=== PATIENT | female | born 1970 | race Caucasian/White ===

== ENCOUNTER 2017-11-04 02:07 | Outpatient (CLI) | payer BC, SELFPAY ==
--- NOTE | 2017-11-04 07:55 | DI.MAMMO_ITS ---
SYMPTOM/DIAGNOSIS: SCREENING, Z12.31 MAMMOGRAMS: Mammograms were interpreted according to the usual protocol including computer analysis with CAD system, tomosynthesis and C view imaging. Comparison is made with exams from 5450-5718. The breasts are composed of fatty density tissue, breast density, Category A. No suspicious masses or suspicious microcalcifications are seen. There has been no significant change. IMPRESSION: Category 1A, negative mammogram. Routine screening is recommended. SA ASSESSMENT OF FINDINGS: Negative. Category 1. Patient will receive a letter notifying them of these results. BI-RAD category A. The breasts are almost entirely fatty.
== END 2017-11-04 02:27 ==
PROVIDERS: Visit Provider Obstetrics & Gynecology Gynecology
DX: Z12.31 Encounter for screening mammogram for malignant neoplasm of breast (principal)
CPT/HCPCS: 77063; 77067

== ENCOUNTER 2018-01-03 09:31 | Outpatient (REF) | payer BC, SELFPAY ==
--- NOTE | 2018-01-03 09:00 | PAPFT_PTH ---
PATIENT: Charlette Thurman LOC: [facility] U#:[id number] AGE/SX: 47/F ROOM: RE01/03/[address]: Lashell Amador : 1970 BED: DIS: 01/03/2018 SPEC #: [id number] RECD: 01/03/18 17:41 STATUS: GEOVANNA REMary #: [id number] PAOLA: 01/03/18 09:[address]: Lashell Amador DEPT: [facility] Cytology RECD BY: Pati Pak ENTERED: 01/03/18 17:41 SP TYPE: PAPFT OTHR DR: Megan Vaca Tissues: 1 - CX/ENDOCX FOR PAP SMEARS Procedures: PAP THIN PREP/UVM Screening HPV DNA PROBE Comments: [id number]
== END 2018-01-03 09:51 ==
LOC: LBN 09:31
PROVIDERS: Visit Provider Obstetrics & Gynecology Gynecology
DX: Z12.4 Encounter for screening for malignant neoplasm of cervix (principal); Z11.51 Encounter for screening for human papillomavirus (HPV)
CPT/HCPCS: 88142; 87624

== ENCOUNTER 2018-06-01 13:27 | Outpatient (CLI) | payer BC, SELFPAY ==
--- NOTE | 2018-06-01 13:00 | DI.RAD_ITS ---
SYMPTOMS/DIAGNOSIS: COUGH, R05 PA AND LATERAL CHEST: Allowing for a suboptimal inspiratory effort, the lungs are clear. There is no evidence of a pleural effusion. Elevation of the right hemidiaphragm is apparent. The heart is not enlarged. The hilar structures, mediastinum and tracheal air column appear intact. SUMMARY: No acute abnormality is demonstrated.
== END 2018-06-01 13:47 ==
PROVIDERS: PCP Nurse Practitioner; Visit Provider Nurse Practitioner
DX: R05 Cough (principal)
CPT/HCPCS: 71046

== ENCOUNTER 2018-10-19 07:55 | Outpatient (CLI) | payer BC, SELFPAY ==
[2018-10-19 08:53] LABS: Hemoglobin A1C 6.1 % (4.5-6.2)
[2018-10-19 09:51] LABS: ALT 30 U/L (12-78); AST 26 U/L (15-37); Albumin 3.4 g/dL (3.4-5.0); Alkaline Phosphatase 76 U/L (46-116); Anion Gap 8.4 mmol/L (3-11); BUN 13 mg/dL (7-18); Bilirubin, Total 0.2 mg/dL (0.2-1.0); CO2 30.6 mmol/L (21.0-32.0); CREATININE 0.82 mg/dL (0.55-1.02); Calculated LDL 135 mg/dL; Chloride 103 mmol/L (98-107); Cholesterol 188 mg/dL (50-200); Glucose 103 mg/dL (70-100); HDL Cholesterol 34 mg/dL (40-60); Potassium 4.1 mmol/L (3.5-5.1); Sodium 142 mmol/L (136-145); Total Protein 7.2 g/dL (6.4-8.2); Triglyceride 95 mg/dL (30-150)
== END 2018-10-19 08:15 ==
PROVIDERS: PCP Nurse Practitioner; Visit Provider Nurse Practitioner Family
DX: R73.03 Prediabetes (principal); E66.9 Obesity, unspecified
CPT/HCPCS: 36415; 80053; 80061; 83721; 83036

== ENCOUNTER 2019-01-02 01:26 | Outpatient (CLI) | payer BC, SELFPAY ==
--- NOTE | 2019-01-02 07:30 | DI.MAMMO_ITS ---
EXAM: MG MAMMO SCREENING CLINICAL HISTORY: Screening, z12.39 TECHNIQUE: Mammograms were interpreted according to the usual protocol including computer analysis w [employer] CAD system, tomosynthesis and C-view imaging. COMPARISON: [id number] FINDINGS: The breasts are composed of almost entirely fatty tissue, breast density category A. There are no louise spicious masses or suspicious microcalcifications. There is no significant interval change when paulino red with the previous images. IMPRESSION: Category 1, negative mammogram. Yearly screening mammography is recommended. BI-RADS Cat 1 - Negative Breast Density - Category A - Almost entirely fatty
== END 2019-01-02 01:46 ==
PROVIDERS: PCP Nurse Practitioner; Visit Provider Obstetrics & Gynecology Gynecology
DX: Z12.31 Encounter for screening mammogram for malignant neoplasm of breast (principal)
CPT/HCPCS: 77063; 77067

== ENCOUNTER 2019-02-13 13:58 | Outpatient (CLI) | payer BC, SELFPAY ==
--- NOTE | 2019-02-13 14:29 | DI.RAD_ITS ---
EXAM: XR FOOT LT COMPLETE INDICATION: PAIN LT FOOT, M79.672. COMPARISON: No exams were available for comparison TECHNIQUE: 2D digital imaging was performed. FINDINGS: Three weight-bearing views were performed. The plantar arch is well maintained. There are minimal h eel spurs. There is mild spurring at the posterior talocalcaneal joint. MTP joints are unremarkable . There is no hallux valgus. IMPRESSION: Minimal degenerative changes.
== END 2019-02-13 14:18 ==
PROVIDERS: PCP Nurse Practitioner; Visit Provider Podiatrist Foot & Ankle Surgery
DX: M79.672 Pain in left foot (principal); M77.32 Calcaneal spur, left foot; M25.772 Osteophyte, left ankle
CPT/HCPCS: 73630

== ENCOUNTER 2019-04-06 11:19 | Outpatient (REF) | payer BC, SELFPAY ==
[2019-04-06 21:32] LABS: Abs Immature Grans 0.01 k/cumm (0.0-0.09); Absolute Basophil Count 0.04 k/cumm (0.0-0.2); Absolute Lymphocyte Count 2.81 k/cumm (1.2-3.4); Absolute Monocyte Count 0.94 k/cumm (0.11-0.7); Absolute Neutrophil Count 4.81 k/cumm (1.2-6.7); Basophils % 0.4; Eosinophils % 3.4; HCT 39.6 % (36.0-46.0); HGB 12.6 g/dL (12.0-15.5); Immature Grans % 0.1 %; Lymphocytes % 31.5; Mean Corp. HGB Concentration 31.8 g/dL (32.0-36.0); Mean Corpuscular Volume 91.2 fL (80-95); Mean Platelet Volume 10.1 fL (8.0-11.0); Monocytes % 10.5; Neutrophils % 54.1; Platelet Count 387 x1000/uL (130-400); RBC 4.34 m/cumm (4.00-5.20); RBC Distribution Width 14.8 % (11.7-14.6); White Blood Cell Count 8.91 k/cumm (4.4-10.8)
[2019-04-06 21:46] LABS: ALT 32 U/L (14-59); AST 27 U/L (15-37); Albumin 3.5 g/dL (3.4-5.0); Alkaline Phosphatase 69 U/L (46-116); Anion Gap 7.2 mmol/L (3-11); BUN 15 mg/dL (7-18); Bilirubin, Total 0.2 mg/dL (0.2-1.0); CO2 31.8 mmol/L (21.0-32.0); CREATININE 0.76 mg/dL (0.55-1.02); Calcium 9.4 mg/dL (8.5-10.1); Chloride 101 mmol/L (98-107); Glucose 76 mg/dL (74-106); Potassium 4.1 mmol/L (3.5-5.1); Sodium 140 mmol/L (136-145); Total Protein 7.2 g/dL (6.4-8.2)
== END 2019-04-06 11:39 ==
LOC: NCHCN 11:19
PROVIDERS: PCP Nurse Practitioner; Visit Provider Nurse Practitioner Family
DX: R10.9 Unspecified abdominal pain (principal)
CPT/HCPCS: 80053; 85025; 87086

== ENCOUNTER 2020-02-29 01:32 | Outpatient (CLI) | payer BC, SELFPAY ==
--- NOTE | 2020-02-29 07:30 | DI.MAMMO_ITS ---
EXAM: MG MAMMO SCREENING CLINICAL HISTORY: screening. TECHNIQUE: Bilateral full field digital CC and MLO mammographic images were obtained with 3D tomosyn thesis and utilizing computer aided detection (CAD). COMPARISON: Prior mammograms dating back to 2010, the most recent being December 2018. FINDINGS: There are no spiculated masses nor malignant appearing microcalcification groups. There is no signif icant architectural distortion nor skin thickening-retraction. IMPRESSION: No radiographic evidence of malignancy. BI-RADS Category 1 - Negative Breast Density - Category A - Almost entirely fatty Breast density Category C or D implies that the patient has dense breast tissue. Dense breast tissue can make it harder to find cancer on a mammogram. Dense breast tissue is also associated with an incr eased risk of breast cancer. This information about the result of the mammogram report was provided to the patient to raise their awareness. Use this report when you speak with the patient about their risks for breast cancer, which includes their family history. At that time, you may recommend additional screening tests (Ultrasoun d or MRI) as these tests may add significant information. A negative radiographic report should not delay biopsy if a dominant or clinically suspicious mass is present. Up to ten percent of cancers are not identified on mammography. A negative report may reinforce clinical impression. Adenosis and dense breasts may obscure an underlying neoplasm. False positive reports average 6 to 10%. Patient will receive a letter notifying them of these results.
== END 2020-02-29 01:52 ==
PROVIDERS: PCP Nurse Practitioner; Visit Provider Nurse Practitioner Family
DX: Z12.31 Encounter for screening mammogram for malignant neoplasm of breast (principal)
CPT/HCPCS: 77063; 77067

== ENCOUNTER 2020-03-06 04:04 | Outpatient (CLI) | payer BC, SELFPAY ==
[2020-03-07 02:12] LABS: COVID-19 RT-PCR UVMMC Result Negative (Negative)
== END 2020-03-06 04:24 ==
PROVIDERS: PCP Nurse Practitioner; Visit Provider Nurse Practitioner Family
DX: Z11.59 Encounter for screening for other viral diseases (principal)
CPT/HCPCS: U0003

== ENCOUNTER 2020-04-25 18:09 | Outpatient (REF) | payer BC, SELFPAY ==
[2020-04-25 13:55] LABS: ALT 29 U/L (14-59); AST 19 U/L (15-37); Albumin 3.8 g/dL (3.4-5.0); Alkaline Phosphatase 70 U/L (46-116); Anion Gap 8.2 mmol/L (3-11); BUN 21 mg/dL (7-18); Bilirubin, Total 0.3 mg/dL (0.2-1.0); CO2 31.8 mmol/L (21.0-32.0); CREATININE 0.9 mg/dL (0.55-1.02); Calcium 9.6 mg/dL (8.5-10.1); Calculated LDL 123 mg/dL (<100); Chloride 101 mmol/L (98-107); Cholesterol 190 mg/dL (<200); Glucose 82 mg/dL (74-106); HDL Cholesterol 39 mg/dL (40-60); Potassium 4.1 mmol/L (3.5-5.1); Sodium 141 mmol/L (136-145); Total Protein 7.6 g/dL (6.4-8.2); Triglyceride 144 mg/dL (<150)
== END 2020-04-25 18:10 | disposition home or self-care (01) ==
LOC: NCHCN 18:09
PROVIDERS: PCP Nurse Practitioner; Visit Provider Nurse Practitioner Family
DX: I10 Essential (primary) hypertension (principal); E78.5 Hyperlipidemia, unspecified; R73.03 Prediabetes; E55.9 Vitamin D deficiency, unspecified; F32.9 Major depressive disorder, single episode, unspecified
CPT/HCPCS: 80053; 80061

== ENCOUNTER 2020-05-29 02:03 | Outpatient (CLI) | payer BC, SELFPAY ==
--- NOTE | 2020-05-29 07:23 | DI.US_ITS ---
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 The left ventricular systolic function is normal. The left ventricular ejection fraction is within the normal range. There is normal left ventricular wall thickness. There is normal LV segmental wall motion. The left ventricular diastolic function is normal. LVEF is 60-65%. Right Ventricle : Right ventricle is mildly dilated. Right ventricular systolic function is grossly n ormal. The RVSP is 31.9mmHg. Atria : The left atrium size is normal. The right atrium size is normal. Aortic Valve : The aortic valve is normal in structure. Aortic valve is trileaflet. Trace aortic regu rgitation. There is no aortic valvular stenosis. Mitral Valve : The mitral valve is normal in structure. Mild mitral regurgitation. No evidence of jeancarlos ral valve stenosis. Great Vessels : The aortic root is normal in size. The ascending aorta is mildly dilated. Aortic arch is normal in caliber. IVC is normal in size and collapses >50% with inspiration. Compared to study from 01/01/2017, there is no significant change. Wall motion Left Ventricle The left ventricle is normal size. The left ventricular systolic function is normal. The left ventric ular ejection fraction is within the normal range. There is normal left ventricular wall thickness. T here is normal LV segmental wall motion. The left ventricular diastolic function is normal. There is no ventricular septal defect visualized. LVEF is 60-65%. Right Ventricle Right ventricle is mildly dilated. Right ventricular systolic function is grossly normal. The RVSP is 31.9mmHg. Atria The left atrium size is normal. The right atrium size is normal. The interatrial septum is intact wit h no evidence for an atrial septal defect. Aortic Valve The aortic valve is normal in structure. Aortic valve is trileaflet. There is no aortic valvular sten osis. Trace aortic regurgitation. Mitral Valve The mitral valve is normal in structure. No evidence of mitral valve stenosis. Mild mitral regurgitat ion. Tricuspid Valve The tricuspid valve is normal in structure. There is no tricuspid valve stenosis. Mild tricuspid regu rgitation. Pulmonic Valve The pulmonary valve is normal in structure. There is no pulmonic valvular stenosis. There is no pulmo tylor valvular regurgitation. Great Vessels The aortic root is normal in size. The ascending aorta is mildly dilated. Aortic arch is normal in ca liber. IVC is normal in size and collapses >50% with inspiration. Pericardium There is no pericardial effusion. 2D Dimensions IVSD d PLAX 0.81 cm F: 0.6-1.0 LV Vol A2C d MOD 113.3 mL LVPW d PLAX 0.81 cm F: 0.6 - 1.0 LV Vol A4C d MOD 87.3 mL LVID d PLAX 4.59 cm F: 3.8 - 5.2 LA vol/ BSA A2C s A-L 26.3 mL/m2 LVDs 3.05 cm F: 2.2 - 3.5 LA vol/ BSA A4C s A-L 16.4 mL/m2 Ao Root d 3.07 cm F: 2.7 - 3.3 LA Vol/ BSA Biplane s A-L 23.0 mL/m2 RA Area A4C 15.48 cm2 LA Area A4C s MOD 15.63 cm2 RA Vol/ BSA A4C s A-L 19.2 mL/m2 LA Area A2C s MOD 17.88 cm2 Ao Asc Diam d 3.56 cm F: 2.3 - 3.1 LV EF A4C MOD 63.7 % LV EF Teichholz 61.7 % LV EF A2C MOD 61.6 % LVEF (Zimmerman's) 62.29 % F: 54 - 74 LV EF Biplane MOD 62.3 % LV Volume 72.67 mL F: 46 - 106 SV 62.44 mL LV Volume Index 32.73 mL/m2 F: 29 - 61 SV Index 28.09 mL/m2 LV Vol Biplane MOD 100.2 mL FS 33.05 % M-Mode TAPSE 2.26 cm (M/F) >1.7 LV Diastology MV E' medial 0.095 (>0.07 m/s) E/A Ratio 1.4 LV E/e MED 8.50 (<14) MV E Vmax 0.81 (0.4-1.3 m/s) MV E' lateral 0.121 (>0.1 m/s) MV A Vmax 0.60 (0.4-1.3 m/s) LV E/e LAT 6.75 (<14) MV E/A Ratio 1.35 MV E/E' medial 8.55 MV E/E' lateral 6.76 Aortic Valve LVOT Area 2.96 cm2 AoV Area Vmax 2.24 cm2 LVOT Vmax 0.97 m/s AoV Area/ BSA (Vmax) 1.01 cm2/m2 LVOT Mean Isreal. 0.63 m/s ALBA Mean Isreal. 2.08 cm2 LVOT Peak Grad 3.8 mmHg ALBA Mean Isreal. Index 0.94 cm2/m2 LVOT Mean Grad 1.8 mmHg AR DT 3503 msec LVOT VTI 0.232 m AR PHT 1016 msec LVOT Diam s 1.90 cm AoV Vmax 1.29 m/s Velocity Ratio 0.75 AoV Mean Isreal. 0.89 m/s AoV Peak Grad 6.6 mmHg LVOT SV 68.86 mL AoV Mean Grad 3.6 mmHg AoV VTI 0.300 m AoV Area VTI 2.30 cm2 AoV Area/ BSA (VTI) 1.03 cm/m2 Mitral Valve MV DT 191 (160-240 msec) MR PISA Radius 0.49 cm MV PHT 55 msec MR Aliasing Velocity 0.35 m/s MV Area PHT 3.98 cm2 MR PISA 1.51 cm2 MV VTI 0.338 m MV VTI Annulus 0.340 m MV Area VTI 2.05 (4.0-6.0 cm2) Pulmonary Valve PV Vmax 1.01 (0.5-1.5 m/s) RVOT Peak Gr. 3.43 mmHg PV Peak Grad 4.1 mmHg RVOT Mean Gr. 1.80 mmHg PV Mean Grad 2.2 mmHg RVOT VTI 0.221 m PV VTI 0.240 m RVOT Vmax 0.93 m/s Tricuspid Valve TR Peak Grad 28.9 mmHg TR Vmax 2.69 m/s RA Pressure 3.00 mmHg RVSP (TR) 31.9 mmHg
== END 2020-05-29 02:23 ==
PROVIDERS: PCP Nurse Practitioner Family; Visit Provider Nurse Practitioner Family
DX: I08.0 Rheumatic disorders of both mitral and aortic valves (principal); I77.810 Thoracic aortic ectasia
CPT/HCPCS: 93306

== ENCOUNTER 2020-08-22 02:47 | Outpatient (CLI) | payer BC, SELFPAY ==
--- NOTE | 2020-08-22 09:34 | DI.RAD_ITS ---
Exam(s) XR FOOT RT COMPLETE EXAM: XR FOOT RT COMPLETE CLINICAL HISTORY: RT FOOT PAIN, M79.671. TECHNIQUE: 2D digital imaging was performed. COMPARISON: CR XR FOOT LT COMPLETE from 02/13/2019 FINDINGS: There is no evidence of fracture nor diastasis of the Lisfranc joint. No osseous lesions nor erosion s. Accessory ossicles noted on the medial aspect of the foot adjacent to the navicular tuberosity wh ich is probably a sesamoid within the tibialis posterior tendon. No pes planus. Minimal degenerativ e changes. No erosions. No osseous lesions. IMPRESSION: DATA REPOSITORY: RADIATION DOSE DELIVERED:
== END 2020-08-22 03:07 ==
PROVIDERS: PCP Nurse Practitioner Family; Visit Provider Family Medicine
DX: M79.671 Pain in right foot (principal)
CPT/HCPCS: 73630

== ENCOUNTER 2021-01-02 14:06 | Outpatient (CLI) | payer BC, SELFPAY ==
--- NOTE | 2021-01-02 14:00 | RT.EKG_ITS ---
APPROVED REPORT Exam: Resting ECG Reason for Exam: New Patient baseline Patient Location: O HR:57 bpm ECG Measurements Heart Rate 57 AXIS WY 172 P 34 QRSd 95 QRS 16 QT 404 T 71 QTc 394 Conclusion Sinus rhythm...normal P axis, V-rate 50- 99 Normal Electrocardiogram
== END 2021-01-02 14:07 | disposition home or self-care (01) ==
LOC: DI.CARD 14:11
PROVIDERS: PCP Nurse Practitioner Family; Visit Provider Internal Medicine Cardiovascular Disease
DX: I35.1 Nonrheumatic aortic (valve) insufficiency (principal); I77.810 Thoracic aortic ectasia
CPT/HCPCS: 93010

== ENCOUNTER 2021-02-14 15:06 | Outpatient (REF) | payer BC, SELFPAY ==
[2021-02-15 17:18] LABS: COVID-19 RT-PCR UVMMC Result Negative (Negative)
== END 2021-02-14 15:07 | disposition home or self-care (01) ==
LOC: LBN 15:06
PROVIDERS: PCP Nurse Practitioner Family; Visit Provider Physician Assistant Medical
DX: Z20.822 Contact with and (suspected) exposure to COVID-19 (principal); J06.9 Acute upper respiratory infection, unspecified
CPT/HCPCS: U0003

== ENCOUNTER 2021-05-23 17:15 | Outpatient (REF) | payer BC, SELFPAY ==
[2021-05-23 15:16] LABS: ALT 42 U/L (14-59); AST 30 U/L (15-37); Albumin 3.5 g/dL (3.4-5.0); Alkaline Phosphatase 76 U/L (46-116); Anion Gap 9.4 mmol/L (3-11); BUN 13 mg/dL (7-18); Bilirubin, Total 0.3 mg/dL (0.2-1.0); CO2 29.6 mmol/L (21.0-32.0); CREATININE 0.8 mg/dL (0.55-1.02); Calcium 9.1 mg/dL (8.5-10.1); Calculated LDL 109 mg/dL (<100); Chloride 101 mmol/L (98-107); Cholesterol 185 mg/dL (<200); Glucose 131 mg/dL (74-106); HDL Cholesterol 35 mg/dL (40-60); Potassium 3.6 mmol/L (3.5-5.1); Sodium 140 mmol/L (136-145); Total Protein 7.2 g/dL (6.4-8.2); Triglyceride 209 mg/dL (<150)
== END 2021-05-23 17:16 | disposition home or self-care (01) ==
LOC: NCHCN 17:15
PROVIDERS: PCP Nurse Practitioner Family; Visit Provider Nurse Practitioner Family
DX: I10 Essential (primary) hypertension (principal); E78.5 Hyperlipidemia, unspecified; R73.03 Prediabetes
CPT/HCPCS: 80053; 80061

== ENCOUNTER 2021-07-09 00:16 | Outpatient (CLI) | payer BC, SELFPAY ==
--- NOTE | 2021-07-09 06:30 | DI.MAMMO_ITS ---
Exam(s) MAMMO SCREENING EXAM: MAMMO SCREENING CLINICAL HISTORY: screening,z12.39 TECHNIQUE: Mammograms were interpreted according to the usual protocol including computer analysis w [employer] CAD system, tomosynthesis and C-view imaging. COMPARISON: 2011 through 2019 FINDINGS: The breasts are composed of mainly fatty density , Breast Density category A. No suspicious masses or suspicious microcalcifications are seen. No skin thickening or abnormal axillary lymph nodes are seen. There has been no significant change from prior exams. IMPRESSION: BI-RADS Category 1, Negative mammogram Yearly screening mammography is recommended. Breast Density - Category A, fatty density. A negative radiographic report should not delay biopsy if a dominant or clinically suspicious mass is present. Up to ten percent of cancers are not identified on mammography. A negative report may reinforce clinical impression. Adenosis and dense breasts may obscure an underlying neoplasm. False positive reports average 6 to 10%. Patient will receive a letter notifying them of these results.
== END 2021-07-09 00:36 ==
PROVIDERS: PCP Nurse Practitioner Family; Visit Provider Obstetrics & Gynecology Gynecology
DX: Z12.31 Encounter for screening mammogram for malignant neoplasm of breast (principal)
CPT/HCPCS: 77063; 77067

== ENCOUNTER 2021-08-01 09:15 | Outpatient (REF) | payer BC, SELFPAY ==
--- NOTE | 2021-08-01 09:00 | PAPFT_PTH ---
PATIENT: Charlette Thurman LOC: [facility] U#:[id number] AGE/SX: 51/F ROOM: RE08/01/[address]: Lashell Amador : 1970 BED: DIS: 08/01/2021 SPEC #: [id number] RECD: 08/01/21 12:54 STATUS: GEOVANNA REQ #: [id number] PAOLA: 08/01/21 09:[address]: Lashell Amador DEPT: [facility] Cytology RECD BY: Pati Pak ENTERED: 08/01/21 12:54 SP TYPE: PAPFT OTHR DR: Tena Varner Tissues: 1 - CX/ENDOCX FOR PAP SMEARS Procedures: PAP THIN PREP/UVM Screening HPV DNA PROBE Comments: [id number]
== END 2021-08-01 09:16 | disposition home or self-care (01) ==
LOC: LBN 09:15
PROVIDERS: PCP Nurse Practitioner Family; Visit Provider Obstetrics & Gynecology Gynecology
DX: Z12.4 Encounter for screening for malignant neoplasm of cervix (principal); Z11.51 Encounter for screening for human papillomavirus (HPV)
CPT/HCPCS: 88142; 87624

== ENCOUNTER 2022-01-08 18:31 | Outpatient (REF) | payer BC, SELFPAY ==
[2022-01-08 16:58] LABS: ALT 44 U/L (14-59); AST 44 U/L (15-37); Albumin 3.6 g/dL (3.4-5.0); Alkaline Phosphatase 71 U/L (46-116); Anion Gap 5.1 mmol/L (3-11); BUN 12 mg/dL (7-18); Bilirubin, Total 0.3 mg/dL (0.2-1.0); CO2 32.9 mmol/L (21.0-32.0); CREATININE 0.8 mg/dL (0.55-1.02); Calcium 9.4 mg/dL (8.5-10.1); Calculated LDL 84 mg/dL (<100); Chloride 102 mmol/L (98-107); Cholesterol 150 mg/dL (<200); Estimated GFR 89.15 (mL/min/1.73m2); Glucose 108 mg/dL (74-106); HDL Cholesterol 41 mg/dL (40-60); Potassium 4.5 mmol/L (3.5-5.1); Sodium 140 mmol/L (136-145); Total Protein 7.2 g/dL (6.4-8.2); Triglyceride 128 mg/dL (<150)
== END 2022-01-08 18:32 | disposition home or self-care (01) ==
LOC: NCHCN 18:31
PROVIDERS: PCP Nurse Practitioner Family; Visit Provider Nurse Practitioner Family
DX: I10 Essential (primary) hypertension (principal); E78.5 Hyperlipidemia, unspecified; E66.9 Obesity, unspecified; R73.03 Prediabetes
CPT/HCPCS: 80053; 80061

== ENCOUNTER 2022-07-31 09:03 | Day surgery (SDC) | payer BC, SELFPAY ==
--- NOTE | 2022-07-30 19:31 | W.PM.DSUDISC ---
Date of service: 07/31/22 Time of Service: 11:21 Discharge Plan Disposition Patient Disposition: Home Condition: Good Discharge Details Reason For Visit: Screening colonoscopy Attending Provider: Miguel Ruiz Primary Care Provider: Tena Varner Home Meds and New Rx's Prescriptions: Continued simvastatin 10 mg tablet 10 mg PO QPM multivitamin [Daily Vitamin] 1 EACH tablet 1 ea PO DAILY Antacid Extra-Strength 1 EACH tablet 1 ea PO TID lisinopril 40 MG tablet 40 mg PO DAILY Qty: 1 chlorthalidone 25 MG tablet 25 mg PO DAILY Mirena 1 EACH intrauterine device 1 ea Intrauterine ONCE Qty: 1 0RF cholecalciferol (vitamin D3) 50 mcg (2,000 unit) capsule 50 mcg PO DAILY sertraline 50 mg tablet 50 mg PO DAILY ascorbic acid (vitamin C) 500 mg capsule 500 mg PO DAILY magnesium chloride 64 mg tablet,delayed release (DR/EC) 64 mg PO DAILY omeprazole 20 mg capsule,delayed release(DR/EC) 20 mg PO DAILY PRN Discontinued polyethylene glycol 3350 17 gram/dose powder 17 g PO ONCE Qty: 238 0RF Rx Instructions: Take per colonoscopy instructions provided by ordering providers office bisacodyl [Dulcolax (bisacodyl)] 5 mg tablet,delayed release (DR/EC) 5 mg PO ONCE Qty: 4 0RF Rx Instructions: Take per colonoscopy instructions provided by ordering providers office Discharge Instructions Instructions: Diverticulosis (GEN), Diverticulosis Diet (GEN) Additional Instructions: Charlette, we were able to complete your colonoscopy today without any difficulty. I had very good visualization of the inside lining of the colon. You do have some sigmoid diverticulosis. These are weak spots in the colon wall that most patients accumulate with age. We have attached some information here regarding general management of diverticula. Otherwise, I did not see any signs of tumors or polyps. Based on your family history of colon cancer, I recommend screening colonoscopies every 5 years. 1. If tolerated, consume a soft, low fiber diet for 1-2 days. 2[address] Do not drive, drink alcohol, operate machinery, make critical decisions, or do activities that require coordination or balance for 24 hours. 3. Because air was put into your colon during the procedure, expelling air from your rectum (passing gas or farting) is normal. 4. You may not have a bowel movement for 1-3 days because of the colonoscopy prep. This is normal. 5. Go directly to the emergency room if you notice any of the following: Develop chills (warm to touch), or if you have a thermometer and your temperature is above 101 Difficulty breathing or difficultly swallowing Persistent vomiting Severe abdominal pain, other than gas cramps Severe chest pain Black, tarry stools Any bleeding ? exceeding one tablespoon 6. Call your physician if the site where your intravenous was started becomes red, swollen, painful, and warm to touch. 7. Your physician has reviewed your pre-procedure medications. Please continue to take those medications as previously ordered. You will be given specific information/education regarding any changes to your medications before leaving. Activity:: Activity as Tolerated Diet:: As Tolerated Discharge Orders Discharge Orders: Discharge Order (Routine); Ordered 07/30/22 Ordered By: Miguel Ruiz DS: Diagnosis Discharge Diagnosis (1) Screening for colon cancer: Status: Acute Asessment and Plan: Sigmoid diverticulosis, but otherwise normal colonoscopy. Based on family history of colon cancer, I recommend another screening in 5 years
--- NOTE | 2022-07-30 19:32 | W.COLOREPORT ---
Date of service: 07/31/22 Time of Service: : Colonoscopy Report Date of procedure: 07/31/22 Pre-op diagnosis general: Screening colonoscopy Post-op diagnosis procedure note: other (Diverticulosis) Procedure: Colonoscopy Surgeon: Miguel Ruiz Anesthesia Type: General:No Airway Estimated blood loss (mL): 0 Pathology: none sent Complications: None Disposition: same day Indications: Charlette is a 52-year-old woman with a first-degree relative with colon cancer. She is here for screening colonoscopy Prep: Miralax/Dulcolax Procedure Start Time: 10:51 Procedure End Time: : Retraction Time: 11 Findings: Sigmoid diverticulosis extending from 20 cm to 40 cm Procedure Description: After the induction of monitored anesthetic care, and with the patient in left lateral decubitus position, I began by performing an external anorectal exam.? Perineum and skin were normal, as was the anal verge.? There was no evidence of external hemorrhoids.? Next, I performed a digital rectal exam.? I did not appreciate any abnormal findings.? Next, I advanced a colonoscope into the rectal vault.? I performed retroflexion.? This appeared normal to me.? Using insufflation, I then advanced the colonoscope beyond the rectal folds and into the sigmoid colon before advancing towards the cecum.? There was sigmoid diverticulosis extending from approximately 20 cm to 40 cm. the quality of the prep was adequate.? The scope was noted to be in the cecum by identification of the ileocecal valve and appendiceal orifice.? I then began withdrawing the colonoscope using repeated irrigation as necessary for full evaluation of the colonic mucosa. ?Once the scope was withdrawn to the level of the rectum, great care was taken to examine portions of the rectal folds.? Finally, the scope was withdrawn and the patient was brought to the same-day surgery recovery unit as the anesthetic wore off. ?The findings and instructions were shared with the patient prior to discharge.
[2022-07-31 09:28] VITALS: BP 139/76; PULSE 89; RESP 17; TEMP 36.1; O2SAT 95
[2022-07-31] MEDS: Lactated Ringers 1,000 ML 80 ML IV (09:41)
--- NOTE | 2022-07-31 10:42 | W.ANESPRE ---
General Info Date of Service Date Performed: 07/31/22 Height: 5 ft 7 in Weight: 115.7 kg Body Mass Index (BMI): 39.9 Surgical Procedure: Operation Date: 07/31/22 10:50 Proposed Procedure Side Surgeon dhara Ruiz MD Meds Allergies and Home Medications Allergies Allergy/AdvReac Type Severity Reaction Status Date / Time No Known Allergies Allergy Verified 07/31/22 09:25 Home Medication Medication Instructions Recorded calcium and magnesium carbonates 1 ea PO TID 12/08/12 311 mg-232 mg tablet (Antacid Extra-Strength) multivitamin (Daily Vitamin tablet) 1 ea PO DAILY 12/08/12 chlorthalidone 25 mg tablet 25 mg PO DAILY 12/25/13 lisinopril 40 mg tablet 40 mg PO DAILY #1 tab-cap 12/25/13 levonorgestrel 21 mcg/24 hours (8 1 ea intrauterine ONCE #1 implant 03/07/17 yrs) 52 mg intrauterine device (Mirena) cholecalciferol (vitamin D3) 50 50 mcg PO DAILY 11/06/20 mcg (2,000 unit) capsule ascorbic acid (vitamin C) 500 mg 500 mg PO DAILY 12/11/21 capsule magnesium chloride 64 mg 64 mg PO DAILY 12/11/21 (magnesium chloride) tablet,delayed release sertraline 50 mg tablet 50 mg PO DAILY 12/11/21 omeprazole 20 mg capsule,delayed 20 mg PO DAILY PRN 07/23/22 release simvastatin 10 mg tablet 10 mg PO QPM 07/23/22 Current Visit Medications: Current Medications Generic Name Dose Route Start Last Admin Trade Name Freq PRN Reason Stop Dose Admin Hyoscyamine Sulfate 0.125 mg 07/30/22 19:36 Hyoscyamine 0.125 Mg Sl/Oral/Chew SL 08/29/22 19:35 DIRECTED PRN Ringer's Solution 1,000 mls @ 80 mls/hr 07/31/22 06:00 07/31/22 09:41 IV 08/29/22 23:59 80 mls/hr INFUSION RUBA Administration IV Miscellaneous Supplies 1 each 07/31/22 06:00 Iv Access IV 08/29/22 23:59 DIRECTED RUBA Ondansetron HCl 4 mg 07/30/22 19:36 Ondansetron 4 Mg/2 Ml Vial IVP 08/29/22 19:35 Q4H PRN PRN Nausea / Vomiting Sodium Chloride 0 ml 07/31/22 06:00 Normal Saline Flush 10 Ml Syr IV 08/29/22 23:59 PRN PRN Sodium Chloride 0 ml 07/31/22 06:00 Normal Saline 10 Ml Vial IJ 08/29/22 23:59 DIRECTED PRN Sterile Water 0 ml 07/31/22 06:00 Water,Injection,Sterile 10 Ml Vial IJ 08/29/22 23:59 DIRECTED PRN PFSH Active Problems Active Problems: Problem Status Onset Code IUD (intrauterine device) in place 02/18/17 Z97.5 Perimenopause 06/15/16 N95.1 Obesity E66.9 Hypertension I10 Screening for colon cancer Z12.11 Aortic regurgitation I35.1 Family history of breast cancer Z80.3 Prediabetes R73.03 Dyspepsia R10.13 Ascending aorta dilatation I77.810 Dyslipidemia E78.5 Vitamin D deficiency E55.9 Medical History Medical History Abnormal uterine bleeding Onset 05/2016. Irregular cycles with heavy flow or prolonged bleeding. 2018 Mirena IUD placed with good results Depression Hypertension Surgical History Surgical History (Updated 07/31/22 @ 09:24 by Leyda Martines, MARIELA) section 2 C/S and tubal ligation Hx laparoscopic cholecystectomy Hx of arthroscopy of left knee Ligation of fallopian tube Tobacco Smoking/Tobacco Use Status: Former Tobacco Use Second hand exposure: No Alcohol Alcohol Intake: current Alcohol intake frequency: holidays/special occasions only Details: rarely Substance Use Substance use type: does not use Prental History History 2 Para Hx # Term Pregnancies 2 Multiple births Hx # Pregnancies Ectopic pregnancies AB induced Hx Number of Living Children AB spontaneous Vital Signs and Lab Results Vital Signs Most Recent Vital Signs in EMR: Most Recent Vital Signs Temp Pulse Resp BP Pulse Ox 36.1 C L 89 17 139/76 95 07/31/22 09:28 07/31/22 09:28 07/31/22 09:28 07/31/22 09:28 07/31/22 09:28 Point of Care Results Point of Care Results: POC- Test(urine) Negative 07/31/22 09:34 Lab Results Blood Type / Crossmatch: No Data to Display Complete Blood Count: No Data to Display Complete Metabolic Panel: No Data to Display Liver Function Panel: No Data to Display Coagulation Panel: No Data to Display Cardiac Panel: No Data to Display Arterial Blood Gas: No Data to Display Venous Blood Gas: No Data to Display Pancreas Panel: No Data to Display Thyroid Panel: No Data to Display Infectious Disease: No Data to Display Blood Cultures: No Data to Display Toxicology Panel: No Data to Display Panel: No Data to Display Anesthesia Assessment and Plan Anesthesia History Personal History: No History of Anesthesia Complications Family History: Family History Unknown Exercise Tolerance Exercise Tolerance: Metabolic Equivalents>4 Pertinent Negatives Pertinent Negatives: No Symptoms of GERD Cardiac & Pulmonary Exam Cardiac Exam: Normal S1/S2 Heart Sounds Pulmonary Exam: Clear Bilateral Breath Sounds Implantable Cardiac Device Does patient have a Pacemaker or an ICD?: No Airway Exam Known Difficult Airway: No Mallampati Class: 2 Mouth Opening: Normal (> 3cm) Thyromental Distance: Greater than 3 cm Neck Range of Motion: Full ROM Neck Circumference: Normal Teeth Condition: Normal Dentition ASA Classification ASA Score: ASA 2 Emergency Case?: No NPO Status NPO Status: NPO Clears >2 hours, Solids >8 hours Status Status: Not Relevant due to Medical History Anesthesia Plan Resuscitation Status: Full Code Anesthesia Technique: General Anesthesia Airway Planned: Natural Airway Monitors Used: Standard Monitors
[2022-07-31 10:43] VITALS: BMI 39.9
[2022-07-31 11:15] VITALS: BP 92/72; PULSE 65; RESP 18; TEMP 36; O2SAT 93
--- NOTE | 2022-07-31 11:27 | W.ANESPOSTOP ---
Postoperative Evaluation Date, Time and Location Date Performed: 07/31/22 Time Performed: 11:27 Patient Location: Day Surgery Unit Vital Signs Most Recent Imported Vital Signs: Most Recent Vital Signs Temp Pulse Resp BP Pulse Ox 36.1 C L 89 17 139/76 95 07/31/22 09:28 07/31/22 09:28 07/31/22 09:28 07/31/22 09:28 07/31/22 09:28 Pain Score Most Recent Pain Score: Most Recent Pain Score Pain Level 0 07/31/22 09:28 Assessment Mental Status: Awake (Alert & Oriented to Patient Baseline) Airway and Respiratory Function: Patent airway with normal (patient baseline) respiratory exam Cardiovascular Function: Hemodynamically Stable Hydration Status: Adequately Hydrated Nausea & Vomiting: No Nausea or Vomiting Pain: Pt. Denies Any Pain Peripheral Nerve Block: Patient did not receive a nerve block
[2022-07-31 11:32] VITALS: BP 103/68; PULSE 69; RESP 18; TEMP 36.6; O2SAT 94
[2022-07-31 11:45] VITALS: BP 102/68; PULSE 74; RESP 18; TEMP 36.5; O2SAT 96
== END 2022-07-31 11:50 | disposition home or self-care (01) ==
PROVIDERS: PCP Nurse Practitioner Family; Visit Provider Surgery
PROC: 0DJD8ZZ Inspection of Lower Intestinal Tract, Via Natural or Artificial Opening Endoscopic (ICD-10-PCS; CPT 45378; principal; 2022-07-31 10:45)
DX: Z12.11 Encounter for screening for malignant neoplasm of colon (principal); K57.30 Diverticulosis of large intestine without perforation or abscess without bleeding; Z80.0 Family history of malignant neoplasm of digestive organs
CPT/HCPCS: 45378; 81025

== ENCOUNTER 2022-08-06 02:18 | Outpatient (CLI) | payer BC, SELFPAY ==
--- NOTE | 2022-08-06 12:19 | DI.MAMMO_ITS ---
Exam(s) MAMMO SCREENING EXAM: MAMMO SCREENING CLINICAL HISTORY: SCREENING MAMMO Z12.39 FAM HX BREAST CANCER Z80.3 TECHNIQUE: Bilateral full field digital CC and MLO mammographic images were obtained with 3D tomosyn thesis and utilizing computer aided detection (CAD). COMPARISON: Available for comparison. FINDINGS: Masses/Architectural Distortion: None seen. Microcalcifications: No suspicious pleomorphic-type are seen. Skin Thickening/Nipple Retraction: None. IMPRESSION: 1. No significant interval change with no specific features of malignancy noted. 2. Unless there is more urgent need, screening mammography is recommended, as per [place] [employer] guidelines. BI-RADS Category 1 - Negative Breast Density - Category B - Scattered areas of fibroglandular density Breast density category C or D implies that the patient has dense breast tissue. Dense breast tissue is very common and is not abnormal but dense breast tissue can make it harder to find cancer on a ma mmogram. Also, dense breast tissue may increase their breast cancer risk. This information about the result of the mammogram report was provided to the patient to raise their awareness. Use this report when you speak with the patient about their risks for breast cancer, which includes their family hist ory. At that time, you may recommend for more screening tests (Ultrasound or MRI) as they might be us eful based on their risk. A negative radiographic report should not delay biopsy if a dominant or clinically suspicious mass is present. Up to ten percent of cancers are not identified on mammography. A negative report may reinforce clinical impression. Adenosis and dense breasts may obscure an underlying neoplasm. False positive reports average 6 to 10%. Patient will receive a letter notifying them of these results.
== END 2022-08-06 02:38 ==
PROVIDERS: PCP Nurse Practitioner Family; Visit Provider Nurse Practitioner Family
DX: Z12.31 Encounter for screening mammogram for malignant neoplasm of breast (principal); Z80.3 Family history of malignant neoplasm of breast
CPT/HCPCS: 77063; 77067

== ENCOUNTER 2022-12-10 14:15 | Outpatient (REF) | payer BC, SELFPAY ==
[2022-12-10 15:44] LABS: ALT 39 U/L (14-59); AST 44 U/L (15-37); Albumin 3.6 g/dL (3.4-5.0); Alkaline Phosphatase 87 U/L (46-116); Anion Gap 6.3 mmol/L (3-11); BUN 12 mg/dL (7-18); Bilirubin, Total 0.4 mg/dL (0.2-1.0); CO2 31.7 mmol/L (21.0-32.0); CREATININE 0.8 mg/dL (0.55-1.02); Calcium 9.6 mg/dL (8.5-10.1); Chloride 101 mmol/L (98-107); Glucose 159 mg/dL (74-106); Potassium 3.7 mmol/L (3.5-5.1); Sodium 139 mmol/L (136-145); Total Protein 7.3 g/dL (6.4-8.2)
[2022-12-10 16:07] LABS: Vitamin D 25 Total 48.6 ng/mL (30-100)
== END 2022-12-10 14:16 | disposition home or self-care (01) ==
LOC: NCHCN 14:15
PROVIDERS: PCP Nurse Practitioner Family; Visit Provider Nurse Practitioner Family
DX: R94.5 Abnormal results of liver function studies (principal); I77.810 Thoracic aortic ectasia; K30 Functional dyspepsia; I10 Essential (primary) hypertension; R73.03 Prediabetes
CPT/HCPCS: 80053; 82306

== ENCOUNTER → 2023-07-08 00:30 | Outpatient (CLI) | payer BC, SELFPAY ==
--- NOTE | 2023-07-08 | DI.US_ITS ---
APPROVED REPORT EXAM: Comprehensive 2D, Doppler, and color-flow Echocardiogram Patient Location: Out-Patient Owner/Operator: Gema Norton RDCS (AE) Indications: Thoracic aortic ectasia Other Information Study Quality: Adequate. Technically limited study due to body habitus. Conclusion Normal left ventricular wall thickness and chamber size. Ejection fraction is 60%. Wall motion is n ormal Right ventricle is grossly normal in size and function Both atria are normal in size There is no structural or hemodynamically significant valvular disease Estimated right ventricular systolic pressure is 28 mmHg Mildly dilated ascending aorta 3.65 cm Wall motion Left Ventricle The left ventricle is normal size. The left ventricular systolic function is normal. The left ventric ular ejection fraction is within the normal range. There is normal left ventricular wall thickness. T here is normal LV segmental wall motion. There is no ventricular septal defect visualized. LVEF is 60 %. Right Ventricle Right ventricle is grossly normal in size. Right ventricular systolic function is grossly normal. Atria The left atrium size is normal. The right atrium size is normal. The interatrial septum is intact wit h no evidence for an atrial septal defect. Aortic Valve The aortic valve is normal in structure. Aortic valve is trileaflet. There is no aortic valvular sten osis. No aortic regurgitation is present. Mitral Valve The mitral valve is normal in structure. No evidence of mitral valve stenosis. Trace mitral regurgita tion. Tricuspid Valve The tricuspid valve is normal in structure. There is no tricuspid valve stenosis. Trace tricuspid reg urgitation. The RVSP is 27.8mmHg. Pulmonic Valve The pulmonary valve is normal in structure. There is no pulmonic valvular stenosis. There is no pulmo tylor valvular regurgitation. Great Vessels The aortic root is normal in size. The ascending aorta is mildly dilated. Aortic arch is normal in ca liber. IVC is normal in size and collapses >50% with inspiration. Pericardium There is no pericardial effusion. 2D Dimensions IVSD d PLAX 1.00 cm F: 0.6-1.0 Ao Root d 3.12 cm F: 2.7 - 3.3 LVPW d PLAX 1.00 cm F: 0.6 - 1.0 Ao Asc Diam d 3.65 cm F: 2.3 - 3.1 LVID d PLAX 4.89 cm F: 3.8 - 5.2 LVDs 3.32 cm F: 2.2 - 3.5 LV EF Teichholz 60.1 % FS 32.10 % LV EDV (Teich) 112.4 mL LV ESV (Teich) 44.9 mL M-Mode TAPSE 2.17 cm (M/F) >1.7 Auto EF LV EDV A4C 112.9 mL LV EDV A2C 85.7 mL LV EDV BP 99.7 mL LV ESV A4C 46.7 mL LV ESV A2C 34.1 mL LV ESV BP 40.0 mL LVEF(%) A4C 58.6 % LVEF(%) A2C 60.2 % LVEF(%) BP 59.9 % LV SV A4C 66.2 ml LV SV A2C 51.6 ml LV SV BP 59.7 ml LV CO A4C 3.8 L/min LV CO A2C 3.3 L/min LV CO BP 3.5 L/min HR A4C 56.68 BPM HR A2C 63.47 BPM LV EDV Index (BP) LA Volume LA Length A4C 3.9 cm LA Length A2C 6.2 cm LA Area A4C s 12.50 cm2 LA Area A2C s 17.74 cm2 LA Vol A4C A-L 33.58 mL LA Vol A2C A-L 43.08 mL LA Vol Biplane A-L 47.7 mL LA Vol/BSA A4C A-L LA Vol/BSA A2C A-L LA Vol/BSA BP A-L 15.1 mL/m2 LA Vol A4C MOD 31.2 mL LA Vol A2C MOD 42.2 mL LA Vol BP MOD 44.8 mL RA Volume RA Area A4C 10.9 cm2 RA ESV A4C (A-L) 23.6mL RA Vol/BSA A4C A-L RA Length A4C 4.3 cm RA ESV A4C (MOD) 22.1mL LV Diastology MV E' medial 0.110 (>0.07 m/s) MV E Vmax 0.89 (0.4-1.3 m/s) MV E/E' MED 8.09 (<14) MV A Vmax 0.90 (0.4-1.3 m/s) MV E' lateral 0.113 (>0.1 m/s) E/A Ratio 1.0 MV E/E' LAT 7.90 (<14) MV E' Average 0.112 m/s MV E/E'(average) 7.99 Aortic Valve AoV Vmax 1.47 m/s LVOT Vmax 1.19 m/s AoV Peak Grad 8.6 mmHg LVOT Peak Grad 5.6 mmHg AoV Area (Vmax) 2.56 cm2 LVOT VTI 0.258 m AoV VTI 0.359 m LVOT Mean Grad 3.2 mmHg AoV Mean Isreal. 1.04 m/s LVOT SV 81.57 mL AoV Mean Grad 4.9 mmHg LVOT Diam s 2.00 cm AoV Area (VTI) 2.27 cm2 Velocity Ratio 0.81 Mitral Valve MV DT 270 (160-240 msec) MV Vmax TIPS 0.96 m/s MV Mean Grad 1.0 (<2mmHg) MV VTI 0.311 m Pulmonary Valve PV Vmax 1.17 (0.5-1.5 m/s) RVOT Vmax 0.76 m/s PV Peak Grad 5.5 mmHg RVOT Peak Gr. 2.3 mmHg PV Mean Isreal 0.84 m/s RVOT VTI 0.172 m PV Mean Grad 3.2 mmHg RVOT Mean Gr. 1.4 mmHg Tricuspid Valve RA Pressure 3.00 mmHg TR Vmax 2.49 m/s TV S' 0.15 m/s TR Peak Grad 24.7 mmHg RVSP (TR) 27.8 mmHg
== END ==
PROVIDERS: PCP Nurse Practitioner Family; Visit Provider Nurse Practitioner Family
DX: I77.810 Thoracic aortic ectasia (principal); I34.0 Nonrheumatic mitral (valve) insufficiency; I36.1 Nonrheumatic tricuspid (valve) insufficiency
CPT/HCPCS: 93306

== ENCOUNTER 2023-09-09 11:02 | Outpatient (REF) | payer BC, SELFPAY ==
--- OUTSIDE RECORDS SUMMARY | 2023-09-09 11:04 | XMS_ITS | Encounter Summary ---
Author Organization [facility] Address [address] [place] [address] Care Team Providers Care Distribution Agent Name Role Phone Megan Vaca MD Primary Care Provider [phone] Encounter Details Date Type Department Care Team (Late st Contact Info) Description 03/06/2020 Lab Requisition [facility] Pathology & Laboratory Medicine - [address] [id number] Outr Resulting Lab, Provider Social History Tobacco Use Types Packs/Day Years Used Date Smoking Tobacco: Never Assessed Interpersonal Safety Answer Date Record ed Physically Hurt Never 10/01/2019 Verbally Threaten Not on file 10/01/2019 Sex and Gender Information Value Date Recorded Sex Assigned at Not on file Gender Identity Not on file Sexual Orientation Not on file documented as of this encounter Plan of Treatment Not on file documented as of this encounter Procedures Procedure Name Priority Date/Time Associated Diagnosis Comments ZZCOVID-19 TEST [facility] PCR Today 03/06/2020 10:00 EST COVID-19 TESTING Routine 03/06/2020 10:0 0 EST documented in this encounter Results * COVID-19 TEST [facility] PCR (03/06/2020 10:00 EST) Swab ENTIRE NASOPHARYNX / Unknown 03/06/2020 10:00 EST 03/06/2020 15:49 EST Provider Outr Resulting Lab MICROBIOLOGY - GENERAL ORDERABLES [facility] [address] [place] [address] * COVID-19 TESTING (03/06/2020 10:00 EST) COVID-19 rt-PCR Result Negative Negative 03/07/2020 2:07 EST [facility] Comment: This test has not been FDA cleared or approved. This test has been authorized by FDA under an EUA for use by authorized laboratories. This test has been authorized only for detection of nucleic acid from 2019-nCoV, not for any other viruses or pathogens. This test is only authorized for the duration of the declaration that circumstances exist justifying the authorization of emergency use of in vitro diagnostic tests for detection and/or diagnosis of 2019-nCoV under section 564(b)(1) of Act, 21 U.S.C ?? 360bbb-3(b) (1), unless the authorization is terminated or revoked sooner. Negative results do not preclude 2019-nCoV infection and should not be used as the sole basis for treatment or other patient management decisions. Negative results must be combined with clinical observations, patient history, and epidemiological information. Performed on the Advanced Voice Recognition Systemsher Fusion instrument Performing Lab [facility] 03/07/2020 2:07 EST [facility] Swab 03/06/2020 10:0 0 EST 03/06/2020 15:49 EST Provider Outr Resulting Lab MICROBIOLOGY - GENERAL ORDERABLES [facility] [address] [place] [address] documented in this encounter Visit Diagnoses Not on filedocumented in this encounter Care Teams Distribution Agent Relationship Specialty Start Date End Date Megan Vaca MD [address] [place] [phone] PCP - General 10/16/16 documented as of this encounter
--- OUTSIDE RECORDS SUMMARY | 2023-09-09 11:04 | XMS_ITS | Encounter Summary ---
Author Organization [facility] Address [address] [place] [address] Care Team Providers Care Lubrication Worker Name Role Phone Unavailable Primary Care Provider Unavailabl e Encounter Details Date Type Department Care Team (Late st Contact Info) Description 01/31/2004 Results Only [facility] - Maple conversion [address] [place] [address] Colin Washington MD [address] [address] Social History Tobacco Use Types Packs/Day Years Used Date Smoking Tobacco: Never Assessed Sex and Gender Information Value Date Recorded Sex Assigned at Not on file Gender Identity Not on file Sexual Orientation Not on file documented as of this encounter Plan of Treatment Not on file documented as of this encounter Procedures Procedure Name Priority Date/Time Associated Diagnosis Comments SURGICAL PATHOLOGY Routine 01/31/2004 0:00 EST documented in this encounter Results * SURGICAL PATHOLOGY (01/31/2004 0:00 EST) Pathology Report: SURGICAL PATHOLOGY REPORT Reports generated via electronic interface contain original data; however they are lacking the format of the original report. Caution should be taken when reading/interpreti ng unformatted reports. Name: ? CHARLETTE JOSEPH ? Accession #: ? [id number] ? : ? 1970 (Age: 33) ??F ? Collect Date: ? 01/31/2004 ? Location: ? [facility] ? Receive Date: ? 01/31/2004 ? Provider: COLIN WASHINGTON MD Copy to: MARCIE WINTERS MD ? Final Pathologic Diagnosis: A. ?Fallopian tube, right, sterilization: 1. ?Benign fallopian tube with full cross section identified. B. ?Fallopian tube, left, sterilization: 1. ?Benign fallopian tube with full cross section identified. Document reviewed and electronically signed by: DAWIT HOOKS MD Report ??Date: 02/04/2004 17:45 By the signature above, the attending physician certifies that he/she has personally conducted a gross and/or microscopic examination of the described specimens and rendered or confirmed the above diagnosis. Specimen(s) Received: A. ?Right fallopian tube B. ?Left fallopian tube Clinical History: ? Previous , desires sterilization Gross Description: ? Received in formalin labelled Wilmer and right fallopian tube is a webb-pink tubular fimbriated end segment of fallopian tube measuring 1.4 cm in length and 0.5 cm in diameter. ??The serosa is webb-pink and smooth and glistening. ??The cut surfaces are webb-white with a central pinpoint lumen. ??The specimen is serially sectioned and customer care representative sections are submitted as (A). Received in formalin labelled Wilmer and left fallopian tube is a webb-pink tubular fimbriated end segment of fallopian tube measuring 1.6 cm in length and 0.5 cm in diameter. ??The serosa is webb-pink and smooth and glistening. ??The cut surfaces are webb-white with a central pinpoint lumen. ??Two customer care representative sections are submitted as (B). ??(Carlos Atkins)/[facility] End of Report [facility] 01/31/2004 01/31/2004 15: 25 EST Colin Washington MD PATHOLOGY ORDERABLES [facility] [address] [place] [address] documented in this encounter Visit Diagnoses Not on filedocumented in this encounter
--- OUTSIDE RECORDS SUMMARY | 2023-09-09 11:04 | XMS_ITS | Encounter Summary ---
Author Organization [facility] Address [address] [place] [address] Care Team Providers Care Furniture Assembly Supervisor Name Role Phone Unavailable Primary Care Provider Unavailabl e Encounter Details Date Type Department Care Team (Late st Contact Info) Description 09/12/1999 Results Only [facility] - Maple conversion [address] [place] [address] Colin Washington MD [address] [address] Social History Tobacco Use Types Packs/Day Years Used Date Smoking Tobacco: Never Assessed Sex and Gender Information Value Date Recorded Sex Assigned at Not on file Gender Identity Not on file Sexual Orientation Not on file documented as of this encounter Plan of Treatment Not on file documented as of this encounter Procedures Procedure Name Priority Date/Time Associated Diagnosis Comments CYTOPATHOLOGY Routine 09/12/1999 0:00 EDT documented in this encounter Results * CYTOPATHOLOGY (09/12/1999 0:00 EDT) Pathology Report: CYTOPATHOLOGY REPORT Reports generated via electronic interface contain original data; however they are lacking the format of the original report. Caution should be taken when reading/interpreti ng unformatted reports. Name: ? CHARLETTE JOSEPH ? Accession #: ? [id number] : ? 1970 (Age: 29) ??F ?Collect Date: ? 09/12/1999 Location: ? [facility] ? Receive Date: ? 09/16/1999 Provider: ?COLIN WASHINGTON MD Copy to: ? Specimen/Source: ?Conventional Pap Test, Cervix/Endocervix Last Menstrual Period: ? 09/03/99 Menstrual/Pregnanc y Status: ? Irregular Previous Gynecologic Pathology: ? Yes Other: ? Additional clinical information: chronic anovulation ? SPECIMEN ADEQUACY ? Satisfactory for evaluation but limited by obscuring inflammation. GENERAL CATEGORIZATION ? Within Normal Limits ? Document reviewed and electronically signed by: ? Melodie Jett, ??SCT(ASCP) ? Report Date: ??09/17/1999 08:38 End of Report [facility] 09/12/1999 09/16/1999 Colin Washington MD PATHOLOGY ORDERABLES Performing Organization Address City/State/[facility] Co de Phone Number [facility] [address] [place] [address] documented in this encounter Visit Diagnoses Not on filedocumented in this encounter
--- OUTSIDE RECORDS SUMMARY | 2023-09-09 11:04 | XMS_ITS | Encounter Summary ---
Author Organization [facility] Address [address] [place] [address] Care Team Providers Care Engineering And Development Director Name Role Phone Megan Vaca MD Primary Care Provider [phone] Encounter Details Date Type Department Care Team (Late st Contact Info) Description 01/03/2018 Results Only [facility] [phone] Kenrick Mensah MD [address] [place] [address] Social History Tobacco Use Types Packs/Day Years Used Date Smoking Tobacco: Never Assessed Sex and Gender Information Value Date Recorded Sex Assigned at Not on file Gender Identity Not on file Sexual Orientation Not on file documented as of this encounter Plan of Treatment Not on file documented as of this encounter Procedures Procedure Name Priority Date/Time Associated Diagnosis Comments PAP TEST- RESULT ONLY Routine 01/03/2018 0:00 EST documented in this encounter Results * PAP TEST- RESULT ONLY (01/03/2018 0:00 EST) Pathology Report: CYTOPATHOLOGY REPORT Reports generated via electronic interface contain original data; however they are lacking the format of the original report. Caution should be taken when reading/interpreti ng unformatted reports. Name: ? CHARLETTE JOSEPH ? Accession #: ? [id number] ? : ? 1970 (Age: 47) ??F ?Collect Date: ? 01/03/2018 ? Location: ? [facility] ? Receive Date: ? 01/04/2018 ? Provider: KENRICK MENSAH MD Copy to: MEGAN VACA MD ? Final Report SPECIMEN ADEQUACY ? Satisfactory for Evaluation - transformation zone component present - scant squamous epithelial component GENERAL CATEGORIZATION ? Negative for Intraepithelial Lesion or Malignancy ?? Hormonal/Contracep tive status: Intrauterine device Other: Additional clinical information: Insf cells-repeat pap Specimen/Source: ??Pap Test, Cervix/Endocervix, ThinPrep Imaging System with manual evaluation Document reviewed and electronically signed by: ? Ciara Ladd, CT(ASCP) ? Report ??Date: 01/11/2018 14:30 HPV with Pap Test ? Date Ordered: ? 01/11/2018 ? Status: ?? Signed Out ?Date Complete: ? 01/12/2018 ? By: ??System Interface ? Date Reported: ? 01/12/2018 ? Interpretation RESULT: Negative for HPV. No E6 or E7 mRNA is detected from HPV types 16,18,31,33,35, 39,45,51,52,56,58, 59,66, and 68 by clinical ob mediated amplification. Comments Document reviewed and electronically signed by: ? System Interface ? Report date: 01/12/2018 By the signature above, the attending physician certifies that he/she has personally conducted a gross and/or microscopic examination of the described specimens and rendered or confirmed the above diagnosis. End of Report [facility] 01/03/2018 01/04/2018 Kenrick Mensah MD PATHOLOGY ORDERABLES [facility] [address] [place] [address] documented in this encounter Visit Diagnoses Not on filedocumented in this encounter Care Teams Engineering And Development Director Relationship Specialty Start Date End Date Megan Vaca MD [address] [place] [phone] PCP - General 10/16/16 documented as of this encounter
--- OUTSIDE RECORDS SUMMARY | 2023-09-09 11:04 | XMS_ITS | Encounter Summary ---
Author Organization [facility] Address [address] [place] [address] Care Team Providers Care Interior Assemblies Developer Prover Name Role Phone Unavailable Primary Care Provider Unavailabl e Encounter Details Date Type Department Care Team (Late st Contact Info) Description 10/31/2002 Results Only [facility] - Maple conversion [address] [place] [address] Ada Dunn, [facility] [address] [place] [address] Social History Tobacco Use Types Packs/Day Years Used Date Smoking Tobacco: Never Assessed Sex and Gender Information Value Date Recorded Sex Assigned at Not on file Gender Identity Not on file Sexual Orientation Not on file documented as of this encounter Plan of Treatment Not on file documented as of this encounter Procedures Procedure Name Priority Date/Time Associated Diagnosis Comments CYTOPATHOLOGY Routine 10/31/2002 0:00 EDT documented in this encounter Results * CYTOPATHOLOGY (10/31/2002 0:00 EDT) Pathology Report: CYTOPATHOLOGY REPORT Reports generated via electronic interface contain original data; however they are lacking the format of the original report. Caution should be taken when reading/interpreti ng unformatted reports. Name: ? CHARLETTE JOSEPH ? Accession #: ? [id number] : ? 1970 (Age: 32) ??F ?Collect Date: ? 10/31/2002 Location: ? [facility] ? Receive Date: ? 11/02/2002 Provider: ?ADA DUNN SUPERVISOR POLICY CHANGE CLERKS Copy to: ? Specimen/Source: ?ThinPrep Pap Test, Cervix/Endocervix Last Menstrual Period: ? 10/04/02 Other: ? Additional clinical information: Chronic anovulation ? SPECIMEN ADEQUACY ? Satisfactory for Evaluation - transformation zone component present GENERAL CATEGORIZATION ? Negative for Intraepithelial Lesion or Malignancy ? Document reviewed and electronically signed by: ? ISABELA Hernandez(ASCP) ? Report Date: ??11/06/2002 08:25 End of Report [facility] 10/31/2002 11/02/2002 Ada Dunn SUPERVISOR POLICY CHANGE CLERKS PATHOLOGY ORDERABLES [facility] [address] [place] [address] documented in this encounter Visit Diagnoses Not on filedocumented in this encounter
--- OUTSIDE RECORDS SUMMARY | 2023-09-09 11:04 | XMS_ITS | Encounter Summary ---
Author Organization [facility] Address [address] [place] [address] Care Team Providers Care Rod Piler Name Role Phone Unavailable Primary Care Provider Unavailabl e Encounter Details Date Type Department Care Team (Late st Contact Info) Description 05/28/2006 Results Only [facility] - Maple conversion [address] [place] [address] Colin Washington MD [address] [address] Social History Tobacco Use Types [...] Priority Date/Time Associated Diagnosis Comments CYTOPATHOLOGY Routine 05/28/2006 0:00 EDT documented in this encounter Results * CYTOPATHOLOGY (05/28/2006 0:00 EDT) Pathology Report: CYTOPATHOLOGY REPORT Reports generated via electronic interface contain original data; however they are lacking the format of the original report. Caution should be taken when reading/interpreti ng unformatted reports. Name: ? CHARLETTE JOSEPH ? Accession #: ? [id number] : ? 1970 (Age: 36) ??F ?Collect Date: ? 05/28/2006 Location: ? [facility] ? Receive Date: ? 05/31/2006 Provider: ?COLIN WASHINGTON MD Copy to: ? Specimen/Source: ?ThinPrep Pap Test, Cervix/Endocervix, processed on ViaCytePrep Imaging System, with manual evaluation Last Menstrual Period: ? 04/10/06 ? SPECIMEN ADEQUACY ? Satisfactory for Evaluation - transformation zone component present GENERAL CATEGORIZATION ? Negative for Intraepithelial Lesion or Malignancy ? Document reviewed and electronically signed by: ? ISABELA Hernandez(ASCP) ? Report Date: ??06/02/2006 10:03 End of Report [facility] 05/28/2006 05/31/2006 Colin Washington MD PATHOLOGY ORDERABLES [facility] [address] [place] [address] documented in this encounter Visit Diagnoses Not on filedocumented in this encounter
--- OUTSIDE RECORDS SUMMARY | 2023-09-09 11:04 | XMS_ITS | Encounter Summary ---
Author Organization [facility] Address [address] [place] [address] Care Team Providers Care Sales Apprentice Name Role Phone Unavailable Primary Care Provider Unavailabl e Encounter Details Date Type Department Care Team (Late st Contact Info) Description 10/13/2016 Results Only [facility] [phone] Gemini Garcia MD [address] [place] [address] [place] [address] Social History Tobacco Use Types Packs/Day Years Used Date Smoking Tobacco: Never Assessed Sex and Gender Information Value Date Recorded Sex Assigned at Not on file Gender Identity Not on file Sexual Orientation Not on file documented as of this encounter Plan of Treatment Not on file documented as of this encounter Procedures Procedure Name Priority Date/Time Associated Diagnosis Comments SURGICAL PATHOLOGY Routine 10/13/2016 11 :26 EDT documented in this encounter Results * SURGICAL PATHOLOGY (10/13/2016 11:26 EDT) Pathology Report: SURGICAL PATHOLOGY REPORT Reports generated via electronic interface contain original data; however they are lacking the format of the original report. Caution should be taken when reading/interpret ing unformatted reports. Name: ? CHARLETTE JOSEPH ? Accession #: ? [id number] ? : ? 1970 (Age: 46) ??F ? Collect Date: ? 10/13/2016 ? Location: ? [facility] ? Receive Date: ? 10/14/2016 ? Provider: GEMINI GARCIA MD Copy to: MARCIE WINTERS MD ? Final Pathologic Diagnosis: ENDOMETRIUM, BIOPSY: - Disordered proliferative endometrium. Document reviewed and electronically signed by: GEETA CLEMENTE MD Report ??Date: 10/15/2016 11:22 By the signature above, the attending physician certifies that he/she has personally conducted a gross and/or microscopic examination of the described specimens and rendered or confirmed the above diagnosis. Specimen(s) Received: Endometrial bx Clinical History: Abnormal uterine bleeding; LMP: 09/20/16; control B.T.L. Gross Description: ? Received in formalin labelled with proper patient identification (initials L, M) and endometrial bx are webb-brown cylindrical and irregular tissue fragments with a small amount of admixed clear mucus aggregating 1.8 x 1.8 x 0.6 cm. Entirely submitted in 1 and 2. LUISITO Rossi (ASCP) 10/14/2016 2:11 PM End of Report [facility] 10/13/2016 11:2 6 EDT 10/14/2016 11:26 EDT Gemini Garcia MD PATHOLOGY ORDERABLES [facility] [address] [place] [address] documented in this encounter Visit Diagnoses Not on filedocumented in this encounter
--- OUTSIDE RECORDS SUMMARY | 2023-09-09 11:04 | XMS_ITS | Encounter Summary ---
Author Organization [facility] Address [address] [place] [address] Care Team Providers Care Maple Products Maker Name Role Phone Unavailable Primary Care Provider Unavailabl e Encounter Details Date Type Department Care Team (Late st Contact Info) Description 06/10/2009 Results Only [facility] - [facility] [address], [place] [id number] Gemini Garcia MD [address] [place] [address] [place] [address] Social History Tobacco Use Types Packs/Day Years Used Date Smoking Tobacco: Never Assessed Sex and Gender Information Value Date Recorded Sex Assigned at Not on file Gender Identity Not on file Sexual Orientation Not on file documented as of this encounter Plan of Treatment Not on file documented as of this encounter Procedures Procedure Name Priority Date/Time Associated Diagnosis Comments CYTOPATHOLOGY Routine 06/10/2009 0:00 EDT documented in this encounter Results * CYTOPATHOLOGY (06/10/2009 0:00 EDT) Pathology Report: CYTOPATHOLOGY REPORT ? Reports generated via electronic interface contain original data; ? however they are lacking the format of the original report. ? Caution should be taken when reading/interpreti ng unformatted reports. ? Name: ? OPAL, CHARLETTE ? Accession #: ? [id number] ? : ? 1970 (Age: 39) ??F ?Collect Date: ? 06/10/2009 ? Location: ? [facility] ? Receive Date: ? 06/11/2009 ? Provider: ?GEMINI GARCIA MD ? Copy to: ?MARCIE FINE MD ? Specimen/Source: ?Pap Test, Cervix/Endocervix, ThinPrep Imaging System ? with manual evaluation ? Last Menstrual Period: ? 3/17/10 ? Hormonal/Contracep tive Status: ? Tubal ligation ? Other: ? HPVA - HPV testing requested if ASC-US on the current ThinPrep Pap test. ? SPECIMEN ADEQUACY ? Satisfactory for Evaluation ? - transformation zone component present ? GENERAL CATEGORIZATION ? Negative for Intraepithelial Lesion or Malignancy ? Document reviewed and electronically signed by: ? Ciara Wilberto, [place](ASCP) ? Report Date: ??06/17/2009 11:06 ? End of Report ? [facility] 06/10/2009 06/11/2009 Gemini Garcia MD PATHOLOGY ORDERABLES [facility] [address] [place] [address] documented in this encounter Visit Diagnoses Not on filedocumented in this encounter
--- OUTSIDE RECORDS SUMMARY | 2023-09-09 11:04 | XMS_ITS | Encounter Summary ---
Author Organization [facility] Address [address] [place] [address] Care Team Providers Care Haulage Boss Name Role Phone Unavailable Primary Care Provider Unavailabl e Encounter Details Date Type Department Care Team (Latest Contact Info) Description 10/13/2016 10:09 EDT - 10/13/2016 23:59 EDT Hospital Encounter [address] [address] Unknown, Provider, Discharge Disposition: Home or Self Care Social History Tobacco Use Types Packs/Day Years Used Date Smoking Tobacco: Never Assessed Sex and Gender Information Value Date Recorded Sex Assigned at Not on file Gender Identity Not on file Sexual Orientation Not on file documented as of this encounter Discharge Disposition Disposition Code Departure Means Destination Home or Self Custodial documented in this encounter Plan of Treatment Not on file documented as of this encounter Visit Diagnoses Not on filedocumented in this encounter
--- OUTSIDE RECORDS SUMMARY | 2023-09-09 11:04 | XMS_ITS | Encounter Summary ---
Author Organization [facility] Address [address] [place] [address] Care Team Providers Care Chlorine Cell Tender Name Role Phone Unavailable Primary Care Provider Unavailabl e Encounter Details Date Type Department Care Team (Late st Contact Info) Description 11/02/2001 Results Only [facility] - [place] conversion [address] [place] [address] Ada Dunn, [facility] [address] [place] [address] Social History Tobacco Use Types [...] Priority Date/Time Associated Diagnosis Comments CYTOPATHOLOGY Routine 11/02/2001 0:00 EDT documented in this encounter Results * CYTOPATHOLOGY (11/02/2001 0:00 EDT) Pathology Report: CYTOPATHOLOGY REPORT Reports generated via electronic interface contain original data; however they are lacking the format of the original report. Caution should be taken when reading/interpreti ng unformatted reports. Name: ? CHARLETTE JOSEPH ? Accession #: ? [id number] : ? 1970 (Age: 31) ??F ?Collect Date: ? 11/02/2001 Location: ? [facility] ? Receive Date: ? 11/04/2001 Provider: ?ADA DUNN HOT CELL TECHNICIAN Copy to: ? Specimen/Source: ?ThinPrep Pap Test, Cervix/Endocervix Last Menstrual Period: ? 07/11/01 Other: ? Additional clinical information: Chronic anovulation ? SPECIMEN ADEQUACY ? Satisfactory for Evaluation - transformation zone component present GENERAL CATEGORIZATION ? Negative for Intraepithelial Lesion or Malignancy ? Document reviewed and electronically signed by: ? Esther Whitt, CT(ASCP)(IAC) ? Report Date: ??11/07/2001 17:47 End of Report [facility] 11/02/2001 11/04/2001 Ada Dunn HOT CELL TECHNICIAN PATHOLOGY ORDERABLES [facility] [address] [place] [address] documented in this encounter Visit Diagnoses Not on filedocumented in this encounter
--- OUTSIDE RECORDS SUMMARY | 2023-09-09 11:04 | XMS_ITS | Encounter Summary ---
Author Organization [facility] Address [address] [place] [address] Care Team Providers Care Chlorine Cell Tender Name Role Phone Megan Vaca MD Primary Care Provider [phone] Encounter Details Date Type Department Care Team (Late st Contact Info) Description 09/27/2017 Results Only [facility] [phone] Kenrick Mensah MD [address] [place] [address] Social History Tobacco Use Types [...] Diagnosis Comments PAP TEST- RESULT ONLY Routine 09/27/2017 0:00 EDT documented in this encounter Results * PAP TEST- RESULT ONLY (09/27/2017 0:00 EDT) Pathology Report: CYTOPATHOLOGY REPORT Reports generated via electronic interface contain original data; however they are lacking the format of the original report. Caution should be taken when reading/interpret ing unformatted reports. Name: ? CHARLETTE JOSEPH ? Accession #: ? [id number] : ? 1970 (Age: 47) ??F ?Collect Date: ? 09/27/2017 Location: ? [facility] ? Receive Date: ? 09/28/2017 Provider: ?KENRICK MENSAH MD Copy to: ?MEGAN VACA MD ? Specimen/Source: ?Pap Test, Cervix/Endocervix , ThinPrep Imaging System with manual evaluation Last Menstrual Period: ? Hormonal/Contrace ptive Status: ? Intrauterine device ? SPECIMEN ADEQUACY ? Unsatisfactory for Evaluation, - insufficient numbers of squamous epithelial cells (less than 10% of expected cellularity) GENERAL CATEGORIZATION ? Specimen processed and examined, but unsatisfactory for evaluation of epithelial abnormality. Recommend Pap test in 2-4 months as stated in ASCCP's 2012 Updated Guidelines. HPV testing will not be performed due to the potential for false negative results. EDUCATIONAL NOTES/RECOMMENDAT IONS ? An additional slide was prepared and evaluated. ? Document reviewed and electronically signed by: ? ISABELA Sage(ASCP) ? Report Date: ??10/12/2017 16:54 End of Report [facility] 09/27/2017 09/28/2017 Kenrcik Mensah MD PATHOLOGY ORDERABLES [facility] [address] [place] [address] documented in this encounter Visit Diagnoses Not on filedocumented in this encounter Care Teams Chlorine Cell Tender Relationship Specialty Start Date End Date Megan Vaca MD [address] [place] [address] PCP - General 10/16/16 documented as of this encounter
--- OUTSIDE RECORDS SUMMARY | 2023-09-09 11:04 | XMS_ITS | Clinical Summary ---
Author Organization [facility] Address [address] [place] [address] Care Team Providers Care Rim Roller Operator Name Role Phone Megan Vaca MD Primary Care Provider [phone] Social History Tobacco Use Types Packs/Day Years Used Date Smoking Tobacco: Never Assessed Interpersonal Safety Answer Date Record ed Physically Hurt Never 10/01/2019 Verbally Threaten Not on file 10/01/2019 Sex and Gender Information Value Date Recorded Sex Assigned at Not on file Gender Identity Not on file Sexual Orientation Not on file Plan of Treatment Health Maintenance Due Date Last Done Comments Hepatitis C Screen 1970 Hepatitis B Vaccine (1 of 3 - 19+ 3-dose series) 04/14 COVID-19 Vaccine (2022-24 season) 2022 Care Teams Rim Roller Operator Relationship Specialty Start Date End Date Megan Vaca MD [address] [place] [address] PCP - General 10/16/16
--- OUTSIDE RECORDS SUMMARY | 2023-09-09 11:04 | XMS_ITS | Encounter Summary ---
Author Organization [facility] Address [address] [place] [address] Care Team Providers Care Room Cooler Installer Name Role Phone Unavailable Primary Care Provider Unavailabl e Encounter Details Date Type Department Care Team (Late st Contact Info) Description 01/16/2015 Results Only [facility] [phone] Gemini Garcia MD [address] [place] [address] [place] [address] Social History Tobacco Use Types Packs/Day Years [...] Diagnosis Comments PAP TEST- RESULT ONLY Routine 01/16/2015 0:00 EST documented in this encounter Results * PAP TEST- RESULT ONLY (01/16/2015 0:00 EST) Pathology Report: CYTOPATHOLOGY REPORT Reports generated via electronic interface contain original data; however they are lacking the format of the original report. Caution should be taken when reading/interpreti ng unformatted reports. Name: ? CHARLTETE JOSEPH ? Accession #: ? [id number] ? : ? 1970 (Age: 44) ??F ?Collect Date: ? 01/16/2015 ? Location: ? [facility] ? Receive Date: ? 01/17/2015 ? Provider: GEMINI GARCIA MD Copy to: MARCIE WINTERS MD ? Final Report SPECIMEN ADEQUACY ? Satisfactory for Evaluation - transformation zone component present GENERAL CATEGORIZATION ? Negative for Intraepithelial Lesion or Malignancy INTERPRETATION ? Reactive cellular changes associated with inflammation present (includes repair). Specimen/Source: ??Pap Test, Cervix/Endocervix, ThinPrep Imaging System with manual evaluation Document reviewed and electronically signed by: ? CHRISTOPHER MARTI MD ? Report ??Date: 01/22/2015 18:09 HPV with Pap Test ? Date Ordered: ? 01/22/2015 ? Status: ?? Signed Out ?Date Complete: ? 01/28/2015 ? By: ??System Interface ? Date Reported: ? 01/28/2015 ? Interpretation RESULT: Negative for HPV. No E6 or E7 mRNA is detected from HPV types 16,18,31,33,35, 39,45,51,52,56,58, 59,66, and 68 by customer service associate mediated amplification. Comments Document reviewed and electronically signed by: ? System Interface ? Report date: 01/28/2015 By the signature above, the attending physician certifies that he/she has personally conducted a gross and/or microscopic examination of the described specimens and rendered or confirmed the above diagnosis. End of Report [facility] 01/16/2015 01/17/2015 Gemini Garcia MD PATHOLOGY ORDERABLES [facility] [address] [place] [address] documented in this encounter Visit Diagnoses Not on filedocumented in this encounter
--- OUTSIDE RECORDS SUMMARY | 2023-09-09 11:04 | XMS_ITS | Referral Summary ---
Author Organization [facility] Address [address] [place] [address] Care Team Providers Care Oscillograph Technician Name Role Phone Megan Vaca MD Primary Care Provider Social History Tobacco Use Types Packs/Day Years Used Date Smoking Tobacco: Never Assessed Interpersonal Safety Answer Date Record ed Physically Hurt Never 10/01/2019 Verbally Threaten Not on file 10/01/2019 Sex and Gender Information Value Date Recorded Sex Assigned at Not on file Gender Identity Not on file Sexual Orientation Not on file Plan of Treatment Not on file Care Teams Oscillograph Technician Relationship Specialty Start Date End Date Megan Vaca MD [address] [place] [address] PCP - General 10/16/16
--- OUTSIDE RECORDS SUMMARY | 2023-09-09 11:04 | XMS_ITS | Encounter Summary ---
Author Organization [facility] Address [address] [place] [address] Care Team Providers Care Firearms Model Maker Name Role Phone Unavailable Primary Care Provider Unavailabl e Encounter Details Date Type Department Care Team (Late st Contact Info) Description 03/10/2004 Results Only [facility] - [place] [facility] [address] [place] [address] Colin Washington MD [address] [address] Social History Tobacco Use Types [...] Priority Date/Time Associated Diagnosis Comments CYTOPATHOLOGY Routine 03/10/2004 0:00 EST documented in this encounter Results * CYTOPATHOLOGY (03/10/2004 0:00 EST) Pathology Report: CYTOPATHOLOGY REPORT Reports generated via electronic interface contain original data; however they are lacking the format of the original report. Caution should be taken when reading/interpreti ng unformatted reports. Name: ? CHARLETTE JOSEPH ? Accession #: ? [id number] : ? 1970 (Age: 33) ??F ?Collect Date: ? 03/10/2004 Location: ? [facility] ? Receive Date: ? 03/11/2004 Provider: ?COLIN WASHINGTON MD Copy to: ? Specimen/Source: ?ThinPrep Pap Test, Cervix/Endocervix Last Menstrual Period: ? Menstrual/Pregnanc y Status: ? Post : 02/01 ? SPECIMEN ADEQUACY ? Satisfactory for Evaluation - transformation zone component present GENERAL CATEGORIZATION ? Negative for Intraepithelial Lesion or Malignancy ? Document reviewed and electronically signed by: ? ISABELA Sage(ASCP) ? Report Date: ??03/13/2004 10:42 End of Report [facility] 03/10/2004 03/11/2004 Colin Washington MD PATHOLOGY ORDERABLES [facility] [address] [place] [address] documented in this encounter Visit Diagnoses Not on filedocumented in this encounter
--- OUTSIDE RECORDS SUMMARY | 2023-09-09 11:04 | XMS_ITS | Encounter Summary ---
Author Organization [facility] Address [address] [place] [address] Care Team Providers Care Garment Sorter Name Role Phone Megan Vaca MD Primary Care Provider [phone] Encounter Details Date Type Department Care Team (Late st Contact Info) Description 02/14/2021 Lab Requisition [facility] Pathology & Laboratory Medicine - [address] [address] Outr Resulting Lab, Provider Social History Tobacco [...] Comments ZZCOVID-19 TEST [facility] PCR Today 02/14/2021 10:50 EST COVID-19 TESTING Routine 02/14/2021 10:5 0 EST documented in this encounter Results * COVID-19 TEST [facility] PCR (02/14/2021 10:50 EST) Swab 02/14/2021 10:5 0 EST 02/14/2021 21:13 EST Provider Outr Resulting Lab MICROBIOLOGY - GENERAL ORDERABLES [facility] [address] [place] [address] * COVID-19 TESTING (02/14/2021 10:50 EST) COVID-19 rt-PCR Result Negative Negative 02/15/2021 17:12 EST [facility] Comment: This test has not [...] clinical observations, patient history, and epidemiological information. This test was developed and its performance characteristics determined by [facility]. It has not been cleared or approved by the US Food and Drug Administration. FDA does not require this test to go through premarket FDA review. This test is used for clinical purposes. It should not be regarded as investigational or for research. This laboratory is certified under the Clinical Laboratory Improvement Amendments (CLIA) as qualified to perform high complexity clinical laboratory testing. This test is based on the [facility] COVID-19 Emergency Use Authorization (EUA) assay, with minor modification as defined by the FDA Performed on the [employer]elStreet[employer] 7 Flex RT-PCR System. Performing Lab [facility] 02/15/2021 17:12 EST [facility] Swab 02/14/2021 10:5 0 EST 02/14/2021 21:13 EST Provider Outr Resulting Lab MICROBIOLOGY - GENERAL ORDERABLES [facility] [address] [place] [address] documented in this encounter Visit Diagnoses Not on filedocumented in this encounter Care Teams Garment Sorter Relationship Specialty Start Date End Date Megan Vaca MD [address] [place] [phone] PCP - General 10/16/16 documented as of this encounter
--- OUTSIDE RECORDS SUMMARY | 2023-09-09 11:04 | XMS_ITS | Encounter Summary ---
Author Organization [facility] Address [address] [place] [address] Care Team Providers Care Wire Bender Hand Name Role Phone Unavailable Primary Care Provider Unavailabl e Encounter Details Date Type Department Care Team (Late st Contact Info) Description 03/16/2005 Results Only [facility] - [place] conversion [address] [place] [address] Colin Washington MD [address] [address] Social History Tobacco Use Types [...] Priority Date/Time Associated Diagnosis Comments CYTOPATHOLOGY Routine 03/16/2005 0:00 EST documented in this encounter Results * CYTOPATHOLOGY (03/16/2005 0:00 EST) Pathology Report: CYTOPATHOLOGY REPORT Reports generated via electronic interface contain original data; however they are lacking the format of the original report. Caution should be taken when reading/interpreti ng unformatted reports. Name: ? CHARLETTE JOSEPH ? Accession #: ? [id number] : ? 1970 (Age: 34) ??F ?Collect Date: ? 03/16/2005 Location: ? [facility] ? Receive Date: ? 03/17/2005 Provider: ?COLIN WASHINGTON MD Copy to: ? Specimen/Source: ?ThinPrep Pap Test, Cervix/Endocervix, processed on adaffix ThinPrep Imaging System, with manual evaluation Last Menstrual Period: ? 02/13/05 Menstrual/Pregnanc y Status: ? Regular ? SPECIMEN ADEQUACY ? Satisfactory for Evaluation - transformation zone component present GENERAL CATEGORIZATION ? Negative for Intraepithelial Lesion or Malignancy ? Document reviewed and electronically signed by: ? ISABELA Hernandez(ASCP) ? Report Date: ??03/18/2005 17:25 End of Report [facility] 03/16/2005 03/17/2005 Colin [place] MD PATHOLOGY ORDERABLES Performing Organization Address City/State/[facility] Co de Phone Number [facility] [address] [place] [address] documented in this encounter Visit Diagnoses Not on filedocumented in this encounter
--- OUTSIDE RECORDS SUMMARY | 2023-09-09 11:04 | XMS_ITS | Encounter Summary ---
Author Organization [facility] Address [address] [place] [address] Care Team Providers Care Airline Pilot Name Role Phone Unavailable Primary Care Provider Unavailabl e Encounter Details Date Type Department Care Team (Late st Contact Info) Description 05/25/2008 Before PRISM Converted Visit ([place]) [facility] - [place] conversion [address] [place] [address] Gemini Garcia MD [address] [place] [address] [place] [address] Social History Tobacco Use Types Packs/Day Years Used Date Smoking Tobacco: Never Assessed Sex and Gender Information Value Date Recorded Sex Assigned at Not on file Gender Identity Not on file Sexual Orientation Not on file documented as of this encounter Plan of Treatment Not on file documented as of this encounter Procedures Procedure Name Priority Date/Time Associated Diagnosis Comments CYTOPATHOLOGY Routine 05/25/2008 0:00 EDT documented in this encounter Results * CYTOPATHOLOGY (05/25/2008 0:00 EDT) Pathology Report: CYTOPATHOLOGY REPORT ? Reports generated via electronic interface contain original data; ? however they are lacking the format of the original report. ? Caution should be taken when reading/interpreti ng unformatted reports. ? Name: ? OPAL, CHARLETTE ? Accession #: ? [id number] ? : ? 1970 (Age: 38) ??F ?Collect Date: ? 05/25/2008 ? Location: ? [facility] ? Receive Date: ? 05/25/2008 ? Provider: ?GEMINI GARCIA MD ? Copy to: ? Specimen/Source: ?Pap Test, Cervix/Endocervix, ThinPrep Imaging System ? with manual evaluation ? Last Menstrual Period: ? 12/10/07 ? Hormonal/Contracep tive Status: ? Tubal ligation ? Other: ? HPVA - HPV testing requested if ASC-US on the current ThinPrep Pap test. ? SPECIMEN ADEQUACY ? Satisfactory for Evaluation ? - transformation zone component present ? GENERAL CATEGORIZATION ? Negative for Intraepithelial Lesion or Malignancy ? Document reviewed and electronically signed by: ? Ciara Ada, CT(ASCP) ? Report Date: ??05/29/2008 07:27 ? End of Report ? [facility] 05/25/2008 05/25/2008 Gemini Garcia MD PATHOLOGY ORDERABLES [facility] [address] [place] [address] documented in this encounter Visit Diagnoses Not on filedocumented in this encounter
--- OUTSIDE RECORDS SUMMARY | 2023-09-09 11:04 | XMS_ITS | Encounter Summary ---
Author Organization [facility] Address [address] [place] [address] Care Team Providers Care Call Box Wirer Name Role Phone Megan Vaca MD Primary Care Provider [phone] Encounter Details Date Type Department Care Team (Late st Contact Info) Description 08/04/2021 Lab Requisition [facility] Pathology & Laboratory Medicine - [facility] [address] [place] [address] Lashell Nolasco MD [facility] [place], [place] [id number] Encounter for other general examination Social History Tobacco Use Types Packs/Day Years [...] Name Priority Date/Time Associated Diagnosis Comments PAP TEST Today 08/01/2021 9:00 EDT Encounter for other general examination HPV DNA DETECTION WITH GENOTYPING, PCR Today 08/01/2021 9:00 EDT Encounter for other general examination documented in this encounter Results * HUMAN PAPILLOMAVIRUS (HPV) DETECTION-HIGH RISK TYPES (08/01/2021 9:00 EDT) HPV other High Risk types, PCR Negative Negative 08/13/2021 14:55 EDT [facility] Comment:No E6 or E7 mRNA is detected from HPV types 16,18,31,33,35,39,45,51,52,56,58,59,66, and 68 by turbine mechanic mediated amplification. Papanicolaou smear specimen (specimen) CERVIX UTERI STRUCTURE / Unknown 08/01/2021 9:00 EDT 08/12/2021 8:53 EDT Lashell Nolasco MD MICROBIOLOGY - GENER AL ORDERABLES [facility] [address] [place] [address] * PAP TEST (08/01/2021 9:00 EDT) Specimens A. Cervix and/or Endocervix , ThinPrep Imaging System with Manual Evaluation 08/13/2021 14:55 [facility] Specimen Adequacy Satisfactory for Evaluation - transformation zone component present 08/13/2021 14:55 [facility] General Categorization Negative for intraepithelial lesion or malignancy 08/13/2021 14:55 [facility] Attestation . 08/13/2021 14:55 [facility] at 1455 Clinical History SEE BELOW 08/14/19 14:55 [facility] HPV The result for the Human Papillomavirus (HPV) Detection-High Risk Types is Negative. No E6 or E7 mRNA is detected from HPV types 16,18,31,33,35,39 ,45,51,52,56,58,5 9,66, and 68 by turbine mechanic mediated amplification.Sera ting was performed on specimen [id number] and was resulted on 08/13/2021 1430 EDT by EM, LAB INSTRUMENT RESULTS IN 08/13/2021 14:55 T [facility] Performing Lab [facility] 08/13/2021 14:55 T [facility] Scanned Images 08/13/2021 14:55 T [facility] Papanicolaou smear specimen (specimen) CERVIX UTERI STRUCTURE / Unknown 08/01/2021 9:00 EDT 08/04/2021 14:46 EDT Lashell Nolasco MD PATHOLOGY ORDERABLES [facility] [address] [place] [address] documented in this encounter Visit Diagnoses Diagnosis Encounter for other general examination documented in this encounter Care Teams Call Box Wirer Relationship Specialty Start Date End Date Meagn Vaca MD [address] [place] [address] PCP - General 10/16/16 documented as of this encounter
--- OUTSIDE RECORDS SUMMARY | 2023-09-09 11:04 | XMS_ITS | Encounter Summary ---
Author Organization [facility] Address [address] [place] [address] Care Team Providers Care Open Hearth Worker Name Role Phone Unavailable Primary Care Provider Unavailabl e Encounter Details Date Type Department Care Team (Late st Contact Info) Description 06/10/2011 Results Only [facility] Laboratory Services - [facility] [address] [place], [place] [id number] Gemini Garcia MD [address] [place] [address] [place] [address] Social History Tobacco Use Types Packs/Day Years [...] Diagnosis Comments PAP TEST- RESULT ONLY Routine 06/10/2011 0:00 EDT documented in this encounter Results * PAP TEST- RESULT ONLY (06/10/2011 0:00 EDT) Pathology Report: CYTOPATHOLOGY REPORT Reports generated via electronic interface contain original data; however they are lacking the format of the original report. Caution should be taken when reading/interpreti ng unformatted reports. Name: ? CHARLETTE JOSEPH ? Accession #: ? [id number] ? : ? 1970 (Age: 41) ??F ?Collect Date: ? 06/10/2011 ? Location: ? [facility] ? Receive Date: ? 06/12/2011 ? Provider: GEMINI GARCIA MD Copy to: ? Final Report SPECIMEN ADEQUACY ? Satisfactory for Evaluation - transformation zone component present GENERAL CATEGORIZATION ? Other, see interpretation INTERPRETATION ? Endometrial cells present in a woman equal to or greater than age 40. Negative for Intraepithelial Lesion. EDUCATIONAL NOTES/RECOMMENDATI ONS ? Benign appearing endometrial cells on Pap tests are usually a normal finding in women with regular menstrual cycles, especially if the Pap test was collected during the first half of the menstrual cycle. There is data showing that endometrial cells on Pap tests may be associated with endometrial/uterin e abnormalities in post menopausal women or in perimenopausal women with abnormal bleeding. There is limited data on the significance of benign endometrial cells in post menopausal women on HRT. ??Clinical correlation is recommended. Note: ??The Pap test is not an accurate test for the screening of endometrial lesions and should not be used as a follow up in patients with clinical suspicion of endometrial pathology. Last Menstural Period: 05/30/11 Hormonal/Contracep tive status: Tubal ligation: BTL Specimen/Source: ??Pap Test, Cervix/Endocervix, ThinPrep Imaging System with manual evaluation Document reviewed and electronically signed by: ? ISABELA Day(ASCP) ? Report ??Date: 06/18/2011 08:51 HPV with Pap Test ? Date Ordered: ? 06/18/2011 ? Status: ?? Signed Out ?Date Complete: ? 06/22/2011 ? By: ??System Interface ? Date Reported: ? 06/22/2011 ? Interpretation RESULT: Negative for HPV. No E6 or E7 mRNA is detected from HPV types 16,18,31,33,35, 39,45,51,52,56,58, 59,66, and 68 by hydraulic oil tool operator mediated amplification. Comments Document reviewed and electronically signed by: ? System Interface ? Report date: 06/22/2011 By the signature above, the attending physician certifies that he/she has personally conducted a gross and/or microscopic examination of the described specimens and rendered or confirmed the above diagnosis. End of Report [facility] 06/10/2011 06/12/2011 Gemini Garcia MD PATHOLOGY ORDERABLES Performing Organization Address City/State/[facility] Co de Phone Number [facility] [address] [place] [address] documented in this encounter Visit Diagnoses Not on filedocumented in this encounter
--- OUTSIDE RECORDS SUMMARY | 2023-09-09 11:04 | XMS_ITS | Encounter Summary ---
Author Organization [facility] Address [address] [place] [address] Care Team Providers Care Insurance Follow Up Rep Name Role Phone Unavailable Primary Care Provider Unavailabl e Encounter Details Date Type Department Care Team (Late st Contact Info) Description 05/02/[address] [facility] [address] [place] [address] Colin Washington MD [address] [address] Social History Tobacco Use Types [...] Priority Date/Time Associated Diagnosis Comments CYTOPATHOLOGY Routine 05/02/2007 0:00 EST documented in this encounter Results * CYTOPATHOLOGY (05/02/2007 0:00 EST) Pathology Report: CYTOPATHOLOGY REPORT Reports generated via electronic interface contain original data; however they are lacking the format of the original report. Caution should be taken when reading/interpreti ng unformatted reports. Name: ? CHARLETTE JOSEPH ? Accession #: ? [id number] : ? 1970 (Age: 37) ??F ?Collect Date: ? 05/02/2007 Location: ? [facility] ? Receive Date: ? 05/03/2007 Provider: ?COLIN WASHINGTON MD Copy to: ? Specimen/Source: ?ThinPrep Pap Test, Cervix/Endocervix, processed on [employer] ThinPrep Imaging System, with manual evaluation Last Menstrual Period: ? Other: ? Additional clinical information: nl exam ? SPECIMEN ADEQUACY ? Satisfactory for Evaluation - transformation zone component present GENERAL CATEGORIZATION ? Negative for Intraepithelial Lesion or Malignancy ? Document reviewed and electronically signed by: ? Arielle Ramos, SCT(ASCP) ? Report Date: ??05/05/2007 12:32 End of Report [facility] 05/02/2007 05/03/2007 Colin Washington MD PATHOLOGY ORDERABLES [facility] [address] [place] [address] documented in this encounter Visit Diagnoses Not on filedocumented in this encounter
--- OUTSIDE RECORDS SUMMARY | 2023-09-09 11:04 | XMS_ITS | Encounter Summary ---
Author Organization [facility] Address [address] [place] [address] Care Team Providers Care Internal Medicine Veterinary Technician Name Role Phone Unavailable Primary Care Provider Unavailabl e Encounter Details Date Type Department Care Team (Late st Contact Info) Description 10/29/2000 Results Only [facility] [address] [place] [address] Ada Dunn, [facility] [address] [place] [address] Social History Tobacco Use Types [...] Priority Date/Time Associated Diagnosis Comments CYTOPATHOLOGY Routine 10/29/2000 0:00 EDT documented in this encounter Results * CYTOPATHOLOGY (10/29/2000 0:00 EDT) Pathology Report: CYTOPATHOLOGY REPORT Reports generated via electronic interface contain original data; however they are lacking the format of the original report. Caution should be taken when reading/interpreti ng unformatted reports. Name: ? CHARLETTE JOSEPH ? Accession #: ? [id number] : ? 1970 (Age: 30) ??F ?Collect Date: ? 10/29/2000 Location: ? [facility] ? Receive Date: ? 11/04/2000 Provider: ?ADA DUNN CHIEF PORT DIRECTOR Copy to: ? Specimen/Source: ?Conventional Pap Test, Cervix/Endocervix Last Menstrual Period: ? 10/07/00 ? SPECIMEN ADEQUACY ? Satisfactory for evaluation. GENERAL CATEGORIZATION ? Within Normal Limits ? Document reviewed and electronically signed by: ? Mary Hoover, ISABELA(ASCP) ? Report Date: ??11/04/2000 12:43 End of Report [facility] 10/29/2000 11/04/2000 Ada Dunn CHIEF PORT DIRECTOR PATHOLOGY ORDERABLES [facility] [address] [place] [address] documented in this encounter Visit Diagnoses Not on filedocumented in this encounter
[2023-09-09 15:18] LABS: ALT 49 U/L (14-59); AST 34 U/L (15-37); Albumin 3.5 g/dL (3.4-5.0); Alkaline Phosphatase 103 U/L (46-116); Anion Gap 4.1 mmol/L (3-11); BUN 11 mg/dL (7-18); Bilirubin, Total 0.31 mg/dL (0.2-1.0); CO2 34.9 mmol/L (21.0-32.0); Calcium 9.4 mg/dL (8.5-10.1); Calculated LDL 83 mg/dL (<100); Chloride 105 mmol/L (98-107); Cholesterol 136 mg/dL (<200); Estimated GFR 67.36 (mL/min/1.73m2); Glucose 118 mg/dL (74-106); HDL Cholesterol 41 mg/dL (40-60); Sodium 144 mmol/L (136-145); Total Protein 7.5 g/dL (6.4-8.2); Triglyceride 63 mg/dL (<150); Vitamin D 25 Total 45.5 ng/mL (30-100)
== END 2023-09-09 11:03 | disposition home or self-care (01) ==
LOC: NCHCN 11:02
PROVIDERS: PCP Nurse Practitioner Family; Visit Provider Nurse Practitioner Family
DX: Z00.00 Encounter for general adult medical examination without abnormal findings (principal)
CPT/HCPCS: 80053; 80061; 82306

== ENCOUNTER 2023-10-28 02:37 | Outpatient (CLI) | payer BC, SELFPAY ==
--- NOTE | 2023-10-28 06:45 | DI.MAMMO_ITS ---
Exam(s) MAMMO SCREENING EXAM: MAMMO SCREENING CLINICAL HISTORY: screening, Z12.39 TECHNIQUE: Mammograms were interpreted according to the usual protocol including computer analysis w [employer] CAD system, tomosynthesis and C-view imaging. COMPARISON: 2013 through 2022 FINDINGS: The breasts are composed of mainly fatty density , Breast Density category A. No suspicious masses or suspicious microcalcifications are seen. No skin thickening or abnormal axillary lymph nodes are seen. There has been no significant change from prior exams. IMPRESSION: BI-RADS Category 1, Negative mammogram Yearly screening mammography is recommended. Breast Density - Category A, fatty density. A negative radiographic report should not delay biopsy if a dominant or clinically suspicious mass is present. Up to ten percent of cancers are not identified on mammography. A negative report may reinforce clinical impression. Adenosis and dense breasts may obscure an underlying neoplasm. False positive reports average 6 to 10%. Patient will receive a letter notifying them of these results.
--- NOTE | 2023-10-28 07:10 | DI.US_ITS ---
Exam(s) US PELVIS TRANSVAGINAL EXAM: US PELVIS TRANSVAGINAL CLINICAL HISTORY: L sided pelvic pain when bladder full, pelvic/perineal pain, R10.2 TECHNIQUE: Transabdominal and transvaginal imaging was performed using standard protocol. COMPARISON: US US PELVIS TRANSVAGINAL from 10/22/2022 FINDINGS: UTERUS: Anteverted. 9.0 x 3.9 x 4.7 cm Endometrium: [address]. Myometrium: Unremarkable. Cervix: Unremarkable. OVARIES: Not visualized. CUL-DE-SAC: Free fluid: None. IMPRESSION: 1. Normal-appearing uterus with endometrial stripe within normal limits. IUD in place. 2. Ovaries not visualized. DATA REPOSITORY:
== END 2023-10-28 02:57 ==
LOC: DI 02:37
PROVIDERS: PCP Nurse Practitioner Family; Visit Provider Obstetrics & Gynecology Gynecology
DX: R10.2 Pelvic and perineal pain (principal); Z12.31 Encounter for screening mammogram for malignant neoplasm of breast; Z97.5 Presence of (intrauterine) contraceptive device
CPT/HCPCS: 77063; 77067; 76830; 76856

== ENCOUNTER 2023-12-21 09:10 | Outpatient (CLI) | payer BC, SELFPAY ==
--- NOTE | 2023-12-21 09:00 | RT.EKG_ITS ---
APPROVED REPORT Exam: Resting ECG Reason for Exam: Follow up needed Patient Location: O HR:62 bpm ECG Measurements Heart Rate 62 AXIS MT 179 P 31 QRSd 88 QRS 21 QT 393 T 79 QTc 399 Conclusion Sinus rhythm...normal P axis, V-rate 50- 99 Normal Electrocardiogram
== END 2023-12-21 09:11 | disposition home or self-care (01) ==
LOC: DI.CARD 09:11
PROVIDERS: PCP Nurse Practitioner Family; Visit Provider Internal Medicine Cardiovascular Disease
DX: I77.810 Thoracic aortic ectasia (principal); R10.13 Epigastric pain; I10 Essential (primary) hypertension; I35.1 Nonrheumatic aortic (valve) insufficiency
CPT/HCPCS: 93010

== ENCOUNTER 2024-10-10 17:05 | Outpatient (REF) | payer BC, SELFPAY ==
[2024-10-10 20:48] LABS: ALT 70 U/L (14-59); AST 72 U/L (15-37); Albumin 3.5 g/dL (3.4-5.0); Alkaline Phosphatase 116 U/L (46-116); Anion Gap 5.9 mmol/L (3-11); BUN 12 mg/dL (7-18); Bilirubin, Total 0.4 mg/dL (0.2-1.0); CO2 30.1 mmol/L (21.0-32.0); Calcium 9.3 mg/dL (8.5-10.1); Chloride 102 mmol/L (98-107); Estimated GFR 75.97 (mL/min/1.73m2); Glucose 117 mg/dL (74-106); Potassium 3.7 mmol/L (3.5-5.1); Sodium 138 mmol/L (136-145); Total Protein 7.9 g/dL (6.4-8.2)
== END 2024-10-10 17:06 | disposition home or self-care (01) ==
LOC: NCHCN 17:05
PROVIDERS: PCP Nurse Practitioner Family; Visit Provider Nurse Practitioner Family
DX: R94.5 Abnormal results of liver function studies (principal)
CPT/HCPCS: 80053

== ENCOUNTER 2024-10-31 10:29 | Outpatient (CLI) | payer BC, SELFPAY ==
--- NOTE | 2024-10-31 | DI.MAMMO_ITS ---
Exam(s) MAMMO SCREENING EXAM: MAMMO SCREENING CLINICAL HISTORY: SCREENING MAMMO Z12.31 TECHNIQUE: Bilateral full field digital CC and MLO mammographic images were obtained with 3D tomosynthesis and utilizing computer aided detection (CAD). COMPARISON: Comparison is made with prior examinations. FINDINGS: Masses/Architectural Distortion: No suspicious masses or areas of architectural distortion are present. Microcalcifications: No suspicious pleomorphic-type are seen. Skin Thickening/Nipple Retraction: None. IMPRESSION: 1. No significant interval change with no specific features of malignancy noted. 2. Unless there is more urgent need, screening mammography is recommended, as per [employer] [employer] guidelines. BI-RADS Category 1 - Negative Breast Density - Category B - There are scattered areas of fibroglandular density. Breast density Category C or D implies that the patient has dense breast tissue. Dense breast tissue can make it harder to find cancer on a mammogram. Dense breast tissue is also associated with an increased risk of breast cancer. This information about the result of the mammogram report was provided to the patient to raise their awareness. Use this report when you speak with the patient about their risks for breast cancer, which includes their family history. At that time, you may recommend additional screening tests (Ultrasound or MRI) as these tests may add significant information. A negative radiographic report should not delay biopsy if a dominant or clinically suspicious mass is present. Up to ten percent of cancers are not identified on mammography. A negative report may reinforce clinical impression. Adenosis and dense breasts may obscure an underlying neoplasm. False positive reports average 6 to 10%. Patient will receive a letter notifying them of these results.
== END 2024-10-31 10:49 ==
LOC: DI 10:30
PROVIDERS: PCP Nurse Practitioner Family; Visit Provider Nurse Practitioner Family
DX: Z12.31 Encounter for screening mammogram for malignant neoplasm of breast (principal); R92.323 Mammographic fibroglandular density, bilateral breasts
CPT/HCPCS: 77063; 77067